=== PATIENT | male | born 1955 | race Caucasian/White ===

== ENCOUNTER 2016-08-11 21:14 | Inpatient (IN) | payer OTHER ==
[~2016-08-11] VITALS: Ht 182.9 cm; Wt 102.9 kg
[~2016-08-11 21:14] MED LIST: ACYCLOVIR400 MG PO; ATARAX10 MG PO; BACTRIM,SEPT1 TABLET PO; BYSTOLIC10 MG PO; DECADRON4 MG PO; DIALYVITE 3,001 EACH PO; GLIPIZIDE-METF1 EAC2 PO; GUAIFENESI100 MG/5 M PO; HUMALOG100 UNIT/2 SC; LABETALOL HCL100 MG PO; LABETALOL HCL200 MG PO; LEVAQUIN500 MG PO; LEVEMIR FL100 UNIT/1 SC; LEVEMIR100 UNIT/2 SC; LEVOFLOXACIN500 MG PO; LINZESS145 MCG PO; LOSARTAN POTAS100 MG PO; LOSARTAN-HCTZ1 EACH PO; METFORMIN HCL500 MG PO; MIRALAX17 GM PO; NIFEDIPINE ER60 MG PO; ONGLYZA5 MG PO; PANTOPRAZOLE SO40 MG PO; PROAIR HFA8.5 GM IH; PROMETHAZINE HC25 M1 PO; PROTONIX40 MG PO; RENVELA800 MG PO; REVLIMID5 MG PO; STEROIDS PO; TOPROL XL100 MG PO; ULORIC40 MG PO; ULTRAM50 MG PO; VELCADE1 MG/ML IV; VITAMIN D2000 UNIT PO; Zeasorb Antifungal Treatment,Mitrazol Powder TP
[2016-08-11 22:24] LABS: CHLORIDE 92 mEq/L (99-109); SODIUM 130 mEq/L (136-147)
[2016-08-11 22:26] LABS: GLUCOSE 105 mg/dL (70-99)
[2016-08-11 22:28] LABS: ANION GAP 6 MEQ/L (2-14); TOTAL BILIRUBIN 1.3 mg/dL (0.0-1.0)
[2016-08-11 22:30] LABS: ALKALINE PHOSPHATASE 65 IU/L (3-129); GFR ESTIMATE (CALCULATED) 6 mL/min/
[2016-08-11 22:31] LABS: BASOPHIL COUNT 0.2 K/uL (0-0.1); EOSINOPHIL (%) 1.3 % (0-5); EOSINOPHIL COUNT 0.1 K/uL (0-0.3); IMMATURE GRANULOCYTE (%) 3.6 % (0.0-0.7); IMMATURE GRANULOCYTE COUNT 2.3 K/uL; LYMPHOCYTE COUNT 1.4 K/uL (1.0-2.8); MCHC 30.8 G/DL (30.0-36.0); MCV 100.8 FL (86-99); MONOCYTE (%) 14.7 % (3-12); MONOCYTE COUNT 0.9 K/uL (0-0.8); NEUTROPHIL (%) 55.1 % (45-76); NEUTROPHIL COUNT 3.5 K/uL (1.8-6.4); RBC DIS.WIDTH-CV 15.9 % (11.8-14.6); RBC DIS.WIDTH-SD 54.5 % (39-53); RED BLOOD COUNT 2.58 M/uL (4.00-5.50); UREA NITROGEN (BUN) 34 mg/dL (9-23)
[2016-08-11 22:50] LABS: PLATELET COUNT 190 K/uL (156-360); WHITE BLOOD COUNT 6.4 K/uL (4.1-10.2)
[2016-08-11 22:59] LABS: HEMATOLOGY COMMENT 1 SMEAR COMPATIBLE; PLAT.SUFFICIENCY ADEQUATE
[2016-08-11] MEDS ORDERED: VITAMIN D22000 UNIT PO (23:00)
[2016-08-11] MEDS ORDERED: REVLIMID5 MG PO (23:00)
[2016-08-11 23:36] LABS: MAGNESIUM 1.8 mg/dL (1.3-2.7)
[2016-08-11 23:47] LABS: TROP-I INTERPRETATION INDETERMINATE; TROPONIN-I 0.36 ng/mL (0.0-0.30)
[2016-08-11 23:51] LABS: INFLUENZA A VIRAL ANTIGEN NEGATIVE; INFLUENZA B VIRAL ANTIGEN NEGATIVE
[2016-08-12 01:16] LABS: TROP-I INTERPRETATION INDETERMINATE; TROPONIN-I 0.43 ng/mL (0.0-0.30)
[2016-08-12 03:30] VITALS: BP 155/73
[2016-08-12 03:40] VITALS: BP 155/73
[2016-08-12 04:00] VITALS: BP 138/69
[2016-08-12 07:21] VITALS: BP 159/77
[2016-08-12 09:57] LABS: POINT-OF-CARE METER ID UU13113681
[2016-08-12 10:28] LABS: HEMATOCRIT 23.1 % (38.0-50.0); MCH 31.8 PG (29.0-34.0); MCV 99.1 FL (86-99); MEAN PLAT.VOLUME 9.8 uM^3 (9.0-12.4); NRBC (%) 0.7 /100 WBC (0-0); PLATELET COUNT 164 K/uL (156-360); RBC DIS.WIDTH-CV 16.4 % (11.8-14.6); RBC DIS.WIDTH-SD 58.5 % (39-53); RED BLOOD COUNT 2.33 M/uL (4.00-5.50)
[2016-08-12 10:55] LABS: GFR ESTIMATE (CALCULATED) 7 mL/min/; GLUCOSE 90 mg/dL (70-99); SAMPLE HEMOLYSIS CHECK 0; SAMPLE ICTERIC CHECK 0; SAMPLE LIPEMIA CHECK 0; UREA NITROGEN (BUN) 37 mg/dL (9-23)
[2016-08-12 11:06] LABS: BASOPHIL COUNT 0.2 K/uL (0-0.1); EOSINOPHIL (%) 1.3 % (0-5); EOSINOPHIL COUNT 0.1 K/uL (0-0.3); HEMATOLOGY COMMENT 1 SMEAR COMPATIBLE; IMMATURE GRANULOCYTE (%) 4.4 % (0.0-0.7); IMMATURE GRANULOCYTE COUNT 0.3 K/uL; LYMPHOCYTE COUNT 1.5 K/uL (1.0-2.8); MONOCYTE (%) 12.6 % (3-12); MONOCYTE COUNT 0.8 K/uL (0-0.8); NEUTROPHIL (%) 53.5 % (45-76); NEUTROPHIL COUNT 3.2 K/uL (1.8-6.4); PLAT.SUFFICIENCY ADEQUATE; USER ID TLW
[2016-08-12 11:12] LABS: ANION GAP 2 MEQ/L (2-14); CHLORIDE 93 MEQ/L (99-109); SODIUM 127 MEQ/L (136-147)
[2016-08-12 14:16] LABS: IRON 80 MCG/DL (35-150)
[2016-08-12 22:55] VITALS: BP 134/65
[2016-08-13 07:42] LABS: HEMATOCRIT 26.3 % (38.0-50.0); MCH 32.3 PG (29.0-34.0); MCHC 33.1 G/DL (30.0-36.0); MCV 97.8 FL (86-99); MEAN PLAT.VOLUME 10.1 uM^3 (9.0-12.4); NRBC (%) 0.8 /100 WBC (0-0); PLATELET COUNT 153 K/uL (156-360); RBC DIS.WIDTH-CV 16.8 % (11.8-14.6); RBC DIS.WIDTH-SD 59.6 % (39-53); RED BLOOD COUNT 2.69 M/uL (4.00-5.50)
[2016-08-13 08:05] LABS: INTACT PARATHYROID HORMONE 9 pg/mL (10-69)
[2016-08-13 08:42] VITALS: BP 125/60
[2016-08-13 08:43] LABS: ABS NEUTROPHIL COUNT 3.67; ANISOCYTOSIS 1+; EOSINOPHIL ABS CT 0.12; MACROCYTES OCC; PLAT.SUFFICIENCY ADEQUATE; POLYCHROMASIA OCC
[2016-08-13 08:59] LABS: DELETE MACHINE DIFF? YES
[2016-08-13 16:08] VITALS: BP 145/70
[2016-08-13 23:00] VITALS: BP 166/79
[2016-08-14 06:03] LABS: HEMATOCRIT 27.3 % (38.0-50.0); MCH 31.4 PG (29.0-34.0); MCHC 31.9 G/DL (30.0-36.0); MCV 98.6 FL (86-99); MEAN PLAT.VOLUME 9.8 uM^3 (9.0-12.4); PLATELET COUNT 145 K/uL (156-360); RBC DIS.WIDTH-CV 16.3 % (11.8-14.6); RBC DIS.WIDTH-SD 58.2 % (39-53); RED BLOOD COUNT 2.77 M/uL (4.00-5.50); WHITE BLOOD COUNT 6.1 K/uL (4.1-10.2)
[2016-08-14 06:43] LABS: VANCOMYCIN, TROUGH 14.3 MCG/ML (10-20)
[2016-08-14 06:51] LABS: DELETE MACHINE DIFF? YES
[2016-08-14 07:25] LABS: ABS NEUTROPHIL COUNT 3.54; ANISOCYTOSIS 1+; EOSINOPHIL ABS CT 0.43; PLAT.SUFFICIENCY DECREASED; USER ID STC
[2016-08-14 08:02] VITALS: BP 163/88
[2016-08-14 08:54] LABS: ANION GAP 5 MEQ/L (2-14); CHLORIDE 92 MEQ/L (99-109); GFR ESTIMATE (CALCULATED) 8 mL/min/; GLUCOSE 85 mg/dL (70-99); POTASSIUM 3.6 MEQ/L (3.7-5.4); SODIUM 128 MEQ/L (136-147); UREA NITROGEN (BUN) 30 mg/dL (9-23)
[2016-08-14 15:35] VITALS: BP 130/67
[2016-08-14 23:31] VITALS: BP 149/70
[2016-08-15 06:38] LABS: HEMATOCRIT 29.5 % (38.0-50.0); MCH 30.6 PG (29.0-34.0); MCHC 30.8 G/DL (30.0-36.0); MCV 99.3 FL (86-99); MEAN PLAT.VOLUME 9.8 uM^3 (9.0-12.4); NRBC (%) 1.3 /100 WBC (0-0); PLATELET COUNT 156 K/uL (156-360); RBC DIS.WIDTH-SD 57.7 % (39-53); RED BLOOD COUNT 2.97 M/uL (4.00-5.50); WHITE BLOOD COUNT 7.7 K/uL (4.1-10.2)
[2016-08-15 07:41] LABS: ABS NEUTROPHIL COUNT 4.37; ANISOCYTOSIS 1+; EOSINOPHIL ABS CT 0.31; PLAT.SUFFICIENCY ADEQUATE; ROULEAUX 1+; USER ID MCB
[2016-08-15 08:08] VITALS: BP 150/79
[2016-08-15 14:15] LABS: DELETE MACHINE DIFF? YES
[2016-08-15 15:41] VITALS: BP 145/69
[2016-08-15 16:20] LABS: C DIFF TOXIN NEGATIVE (NEGATIVE)
[2016-08-15 16:28] LABS: PROBE CHECK PASS; SPECIMEN PROCESSING CONTROL PASS
[2016-08-15 22:24] VITALS: BP 157/80
[2016-08-16 08:55] LABS: MCH 30.5 PG (29.0-34.0); MCHC 31.1 G/DL (30.0-36.0); MCV 98.2 FL (86-99); NRBC (%) 0.6 /100 WBC (0-0); PLATELET COUNT 152 K/uL (156-360); RBC DIS.WIDTH-CV 15.7 % (11.8-14.6); RBC DIS.WIDTH-SD 56.2 % (39-53); RED BLOOD COUNT 2.75 M/uL (4.00-5.50); WHITE BLOOD COUNT 8.5 K/uL (4.1-10.2)
[2016-08-16 09:04] LABS: DELETE MACHINE DIFF? YES
[2016-08-16 09:25] LABS: ANION GAP 2 MEQ/L (2-14); CHLORIDE 91 MEQ/L (99-109); GFR ESTIMATE (CALCULATED) 9 mL/min/; GLUCOSE 101 mg/dL (70-99); POTASSIUM 3.3 MEQ/L (3.7-5.4); SAMPLE HEMOLYSIS CHECK 0; SAMPLE ICTERIC CHECK 0; SAMPLE LIPEMIA CHECK 0; SODIUM 126 MEQ/L (136-147); UREA NITROGEN (BUN) 27 mg/dL (9-23)
[2016-08-16 16:00] VITALS: BP 103/55
[2016-08-16 23:37] VITALS: BP 124/69
[2016-08-17 07:29] LABS: ANION GAP 2 MEQ/L (2-14); CHLORIDE 92 MEQ/L (99-109); GFR ESTIMATE (CALCULATED) 15 mL/min/; GLUCOSE 78 mg/dL (70-99); POTASSIUM 3.5 MEQ/L (3.7-5.4); SAMPLE HEMOLYSIS CHECK 0; SAMPLE ICTERIC CHECK 0; SAMPLE LIPEMIA CHECK 0; SODIUM 126 MEQ/L (136-147); UREA NITROGEN (BUN) 19 mg/dL (9-23)
[2016-08-17 07:40] VITALS: BP 124/67
[2016-08-17 16:33] VITALS: BP 133/71
[2016-08-17 19:20] LABS: POINT-OF-CARE METER ID UU13113717
[2016-08-17 21:26] LABS: POINT-OF-CARE METER ID UU13113725
[2016-08-17 23:13] VITALS: BP 109/71
[2016-08-18] VITALS (7 sets, daily range): BP systolic 129–173; BP diastolic 60–84
[2016-08-18 05:32] LABS: POINT-OF-CARE METER ID UU13113725
[2016-08-18 11:17] LABS: POINT-OF-CARE METER ID UU13113725
[2016-08-18 16:12] LABS: POINT-OF-CARE METER ID UU13113725
[2016-08-18 18:28] LABS: ANION GAP 5 MEQ/L (2-14); CHLORIDE 90 MEQ/L (99-109); SAMPLE HEMOLYSIS CHECK 0; SAMPLE ICTERIC CHECK 0; SAMPLE LIPEMIA CHECK 0; SODIUM 127 MEQ/L (136-147)
[2016-08-18 18:34] LABS: GFR ESTIMATE (CALCULATED) 8 mL/min/; GLUCOSE 119 mg/dL (70-99); UREA NITROGEN (BUN) 34 mg/dL (9-23)
[2016-08-18 20:53] LABS: POINT-OF-CARE METER ID UU13113717
[2016-08-19 03:31] VITALS: BP 156/74
[2016-08-19 06:45] LABS: MCH 31.8 PG (29.0-34.0); MCHC 32.1 G/DL (30.0-36.0); MCV 98.9 FL (86-99); MEAN PLAT.VOLUME 9.5 uM^3 (9.0-12.4); NRBC (%) 0.7 /100 WBC (0-0); PLATELET COUNT 136 K/uL (156-360); RBC DIS.WIDTH-CV 15.8 % (11.8-14.6); RBC DIS.WIDTH-SD 56.4 % (39-53); RED BLOOD COUNT 2.83 M/uL (4.00-5.50); WHITE BLOOD COUNT 10.1 K/uL (4.1-10.2)
[2016-08-19 06:56] LABS: DELETE MACHINE DIFF? YES
[2016-08-19 07:12] LABS: SAMPLE HEMOLYSIS CHECK 0; SAMPLE ICTERIC CHECK 0; SAMPLE LIPEMIA CHECK 0
[2016-08-19 07:13] LABS: VANCOMYCIN, TROUGH 16.5 MCG/ML (10-20)
[2016-08-19 07:54] LABS: ABS NEUTROPHIL COUNT 5.76; ANISOCYTOSIS OCC; MICROCYTOSIS 1+; PLAT.SUFFICIENCY DECREASED; POLYCHROMASIA OCC; SPHEROCYTES OCC; USER ID SDF
[2016-08-19 08:19] LABS: POINT-OF-CARE METER ID UU13113681; POINT-OF-CARE USER ID DROKMM72
[2016-08-19 08:21] LABS: ANION GAP 7 MEQ/L (2-14); CHLORIDE 89 MEQ/L (99-109); GFR ESTIMATE (CALCULATED) 7 mL/min/; GLUCOSE 107 mg/dL (70-99); LIPASE 42 U/L (1.0-51.0); SODIUM 126 MEQ/L (136-147); UREA NITROGEN (BUN) 39 mg/dL (9-23)
[2016-08-19 09:08] LABS: DELETE MACHINE DIFF? YES; HEMATOCRIT 28.4 % (38.0-50.0); MCH 31.3 PG (29.0-34.0); MCV 97.6 FL (86-99); MEAN PLAT.VOLUME 10.4 uM^3 (9.0-12.4); NRBC (%) 0.7 /100 WBC (0-0); PLATELET COUNT 144 K/uL (156-360); RBC DIS.WIDTH-CV 15.7 % (11.8-14.6); RBC DIS.WIDTH-SD 55.1 % (39-53); RED BLOOD COUNT 2.91 M/uL (4.00-5.50); WHITE BLOOD COUNT 11.2 K/uL (4.1-10.2)
[2016-08-19 09:43] LABS: ABS NEUTROPHIL COUNT 6.27; ANISOCYTOSIS OCC; EOSINOPHIL ABS CT 0.11; MICROCYTOSIS 1+; PLAT.SUFFICIENCY DECREASED; POLYCHROMASIA OCC; SPHEROCYTES OCC; USER ID SDF
[2016-08-19 14:13] VITALS: BP 121/67
[2016-08-19 16:05] LABS: POINT-OF-CARE METER ID UU13113717
[2016-08-19 21:14] LABS: POINT-OF-CARE METER ID UU13113717
[2016-08-19 23:15] VITALS: BP 134/66
[2016-08-20 05:56] LABS: POINT-OF-CARE METER ID UU13113717
[2016-08-20 07:03] LABS: HEMATOCRIT 27.3 % (38.0-50.0); MCH 31.4 PG (29.0-34.0); MCHC 31.5 G/DL (30.0-36.0); MCV 99.6 FL (86-99); NRBC (%) 1.1 /100 WBC (0-0); PLATELET COUNT 132 K/uL (156-360); RBC DIS.WIDTH-CV 15.9 % (11.8-14.6); RBC DIS.WIDTH-SD 57.3 % (39-53); RED BLOOD COUNT 2.74 M/uL (4.00-5.50); WHITE BLOOD COUNT 9.8 K/uL (4.1-10.2)
[2016-08-20 07:24] LABS: DELETE MACHINE DIFF? YES
[2016-08-20 07:38] VITALS: BP 146/74
[2016-08-20 07:39] LABS: ALKALINE PHOSPHATASE 55 IU/L (3-129); ANION GAP 2 MEQ/L (2-14); CHLORIDE 90 MEQ/L (99-109); GLUCOSE 96 mg/dL (70-99); POTASSIUM 3.3 MEQ/L (3.7-5.4); SAMPLE HEMOLYSIS CHECK 0; SAMPLE ICTERIC CHECK 0; SAMPLE LIPEMIA CHECK 0; SODIUM 126 MEQ/L (136-147); TOTAL BILIRUBIN 1.5 MG/DL (0.0-1.0); UREA NITROGEN (BUN) 23 mg/dL (9-23)
[2016-08-20 07:47] LABS: GFR ESTIMATE (CALCULATED) 12 mL/min/
[2016-08-20 07:56] LABS: ABS NEUTROPHIL COUNT 5.98; ANISOCYTOSIS 1+; MACROCYTES 1+; PLAT.SUFFICIENCY DECREASED; USER ID STC
[2016-08-20 11:35] LABS: POINT-OF-CARE METER ID UU13113725
[2016-08-20 15:51] VITALS: BP 153/74
[2016-08-20 16:29] LABS: POINT-OF-CARE METER ID UU13113717
[2016-08-20 21:15] LABS: POINT-OF-CARE METER ID UU13113717
[2016-08-20 23:49] VITALS: BP 145/75
[2016-08-21 04:10] LABS: POINT-OF-CARE METER ID UU13113717
[2016-08-21 06:33] LABS: POINT-OF-CARE METER ID UU13113717
[2016-08-21 07:05] VITALS: BP 139/65
[2016-08-21 07:45] LABS: HEMATOCRIT 26.3 % (38.0-50.0); MCH 31.6 PG (29.0-34.0); MCHC 32.3 G/DL (30.0-36.0); MCV 97.8 FL (86-99); MEAN PLAT.VOLUME 10.2 uM^3 (9.0-12.4); NRBC (%) 0.6 /100 WBC (0-0); PLATELET COUNT 120 K/uL (156-360); RBC DIS.WIDTH-CV 15.6 % (11.8-14.6); RBC DIS.WIDTH-SD 54.8 % (39-53); RED BLOOD COUNT 2.69 M/uL (4.00-5.50); WHITE BLOOD COUNT 9.5 K/uL (4.1-10.2)
[2016-08-21 08:09] LABS: ANION GAP 2 MEQ/L (2-14); CHLORIDE 89 MEQ/L (99-109); GLUCOSE 141 mg/dL (70-99); POTASSIUM 3.4 MEQ/L (3.7-5.4); SAMPLE HEMOLYSIS CHECK 0; SAMPLE ICTERIC CHECK 0; SAMPLE LIPEMIA CHECK 0; SODIUM 124 MEQ/L (136-147); UREA NITROGEN (BUN) 33 mg/dL (9-23)
[2016-08-21 08:10] LABS: GFR ESTIMATE (CALCULATED) 9 mL/min/; VANCOMYCIN, TROUGH 34.8 MCG/ML (10-20)
[2016-08-21 08:32] LABS: ABS NEUTROPHIL COUNT 6.07; ANISOCYTOSIS OCC; EOSINOPHIL ABS CT 0.09; PLAT.SUFFICIENCY DECREASED; USER ID SDF
[2016-08-21 13:27] LABS: DELETE MACHINE DIFF? YES
[2016-08-21 14:52] VITALS: BP 132/68
[2016-08-21 21:04] LABS: POINT-OF-CARE METER ID UU13113717
[2016-08-21 23:00] VITALS: BP 138/70
[2016-08-22 08:01] VITALS: BP 137/68
[2016-08-22 12:05] VITALS: BP 122/68
[2016-08-22 16:00] VITALS: BP 141/82
[2016-08-22 19:51] VITALS: BP 174/88
[2016-08-22 21:26] LABS: POINT-OF-CARE METER ID UU13113725
[2016-08-22 23:38] VITALS: BP 190/91
[2016-08-23 06:03] LABS: POINT-OF-CARE METER ID UU13113725
[2016-08-23 08:03] VITALS: BP 154/89
[2016-08-23 09:07] LABS: ANION GAP 4 MEQ/L (2-14); CHLORIDE 89 MEQ/L (99-109); POTASSIUM 3.9 MEQ/L (3.7-5.4); SAMPLE HEMOLYSIS CHECK 0; SAMPLE ICTERIC CHECK 0; SAMPLE LIPEMIA CHECK 0; SODIUM 125 MEQ/L (136-147)
[2016-08-23 09:12] LABS: GFR ESTIMATE (CALCULATED) 9 mL/min/; GLUCOSE 210 mg/dL (70-99); UREA NITROGEN (BUN) 44 mg/dL (9-23)
[2016-08-23 09:26] LABS: MCHC 30.4 G/DL (30.0-36.0); MCV 98.9 FL (86-99); MEAN PLAT.VOLUME 10.7 uM^3 (9.0-12.4); NRBC (%) 0.5 /100 WBC (0-0); PLATELET COUNT 101 K/uL (156-360); RBC DIS.WIDTH-CV 15.8 % (11.8-14.6); RBC DIS.WIDTH-SD 55.6 % (39-53); RED BLOOD COUNT 2.73 M/uL (4.00-5.50)
[2016-08-23 09:27] LABS: WHITE BLOOD COUNT 12.9 K/uL (4.1-10.2)
[2016-08-23 10:18] LABS: ABS NEUTROPHIL COUNT 9.79; BASOPHIL COUNT 0.1 K/uL (0-0.1); EOSINOPHIL (%) 0.3 % (0-5); HYPOCHROMASIA 2+; IMMATURE GRANULOCYTE (%) 8.1 % (0.0-0.7); LYMPHOCYTE COUNT 1.7 K/uL (1.0-2.8); MONOCYTE (%) 6.7 % (3-12); MONOCYTE COUNT 0.9 K/uL (0-0.8); NEUTROPHIL (%) 70.7 % (45-76); NEUTROPHIL COUNT 9.1 K/uL (1.8-6.4); PLAT.SUFFICIENCY DECREASED; ROULEAUX 1+; USER ID CCL
[2016-08-23 13:59] LABS: POINT-OF-CARE METER ID UU13113717
[2016-08-23 16:20] LABS: POINT-OF-CARE METER ID UU13113725
[2016-08-23 16:30] VITALS: BP 145/81
[2016-08-23 21:22] LABS: POINT-OF-CARE METER ID UU13113725
[2016-08-23 22:52] VITALS: BP 150/90
[2016-08-24 08:09] VITALS: BP 159/92
[2016-08-24 11:00] VITALS: BP 153/99
[2016-08-24 16:31] VITALS: BP 147/75
[2016-08-24 21:37] LABS: POINT-OF-CARE METER ID UU13113717
[2016-08-24 23:00] VITALS: BP 153/99; BP 161/87
[2016-08-25 00:54] VITALS: BP 161/87
[2016-08-25 07:39] LABS: ANION GAP 8 MEQ/L (2-14); CHLORIDE 88 MEQ/L (99-109); GFR ESTIMATE (CALCULATED) 8 mL/min/; GLUCOSE 269 mg/dL (70-99); POTASSIUM 3.9 MEQ/L (3.7-5.4); SAMPLE HEMOLYSIS CHECK 0; SAMPLE ICTERIC CHECK 0; SAMPLE LIPEMIA CHECK 0; SODIUM 124 MEQ/L (136-147)
[2016-08-25 07:42] LABS: UREA NITROGEN (BUN) 91 mg/dL (9-23)
[2016-08-25 09:00] VITALS: BP 149/87
[2016-08-25 11:39] LABS: POINT-OF-CARE METER ID UU13113725
[2016-08-25 16:29] VITALS: BP 132/71
[2016-08-25 23:10] VITALS: BP 136/68
[2016-08-26 01:30] VITALS: BP 124/63
[2016-08-26 02:29] LABS: MCH 31.3 PG (29.0-34.0); MCHC 32.6 G/DL (30.0-36.0); MCV 96.1 FL (86-99); MEAN PLAT.VOLUME 11.4 uM^3 (9.0-12.4); PLATELET COUNT 74 K/uL (156-360); RBC DIS.WIDTH-CV 15.5 % (11.8-14.6); RBC DIS.WIDTH-SD 51.1 % (39-53); RED BLOOD COUNT 2.81 M/uL (4.00-5.50); WHITE BLOOD COUNT 9.8 K/uL (4.1-10.2)
[2016-08-26 02:40] LABS: CHLORIDE 92 mEq/L (99-109); POTASSIUM 4.2 mEq/L (3.7-5.4); SODIUM 127 mEq/L (136-147)
[2016-08-26 02:42] LABS: GLUCOSE 268 mg/dL (70-99)
[2016-08-26 02:44] LABS: ANION GAP 12 MEQ/L (2-14); TOTAL BILIRUBIN 2.2 mg/dL (0.0-1.0)
[2016-08-26 02:46] LABS: ALKALINE PHOSPHATASE 82 IU/L (3-129); GFR ESTIMATE (CALCULATED) 6 mL/min/
[2016-08-26 02:58] LABS: UREA NITROGEN (BUN) 124 mg/dL (9-23)
[2016-08-26 23:37] VITALS: BP 112/64
[2016-08-27 07:32] VITALS: BP 108/66
[2016-08-27 11:52] LABS: POINT-OF-CARE METER ID UU13113725
[2016-08-27 16:00] LABS: POINT-OF-CARE METER ID UU13113717
[2016-08-27 16:07] VITALS: BP 126/59
[2016-08-27 20:20] VITALS: BP 135/61
[2016-08-27 21:56] LABS: POINT-OF-CARE METER ID UU13113725
[2016-08-27 23:59] VITALS: BP 129/61
[2016-08-28 05:50] LABS: POINT-OF-CARE METER ID UU13113725
[2016-08-28 08:39] LABS: EOSINOPHIL (%) 1.6 % (0-5); EOSINOPHIL COUNT 0.1 K/uL (0-0.3); HEMATOCRIT 24.5 % (38.0-50.0); IMMATURE GRANULOCYTE (%) 4.3 % (0.0-0.7); IMMATURE GRANULOCYTE COUNT 0.4 K/uL; LYMPHOCYTE COUNT 2.2 K/uL (1.0-2.8); MCH 31.6 PG (29.0-34.0); MCHC 33.1 G/DL (30.0-36.0); MCV 95.7 FL (86-99); MEAN PLAT.VOLUME 11.6 uM^3 (9.0-12.4); MONOCYTE (%) 10.9 % (3-12); MONOCYTE COUNT 0.9 K/uL (0-0.8); NEUTROPHIL COUNT 4.6 K/uL (1.8-6.4); RBC DIS.WIDTH-CV 16.2 % (11.8-14.6); RBC DIS.WIDTH-SD 55.9 % (39-53); RED BLOOD COUNT 2.56 M/uL (4.00-5.50); WHITE BLOOD COUNT 8.2 K/uL (4.1-10.2)
[2016-08-28 08:41] LABS: PLATELET COUNT 114 K/uL (156-360)
[2016-08-28 08:48] LABS: ANION GAP 8 MEQ/L (2-14); CHLORIDE 89 MEQ/L (99-109); POTASSIUM 3.6 MEQ/L (3.7-5.4); SAMPLE HEMOLYSIS CHECK 0; SAMPLE ICTERIC CHECK 0; SAMPLE LIPEMIA CHECK 0; SODIUM 127 MEQ/L (136-147)
[2016-08-28 09:01] LABS: GLUCOSE 166 mg/dL (70-99); UREA NITROGEN (BUN) 89 mg/dL (9-23)
[2016-08-28 09:04] LABS: GFR ESTIMATE (CALCULATED) 8 mL/min/
[2016-08-28 09:38] LABS: HEMATOLOGY COMMENT 1 SMEAR COMPATIBLE; PLAT.SUFFICIENCY DECREASED; USER ID STC
[2016-08-28 14:15] LABS: HBSG INDEX 0.27
[2016-08-28 15:29] LABS: POINT-OF-CARE METER ID UU13113725
[2016-08-28 15:53] VITALS: BP 110/57
[2016-08-28 20:11] VITALS: BP 132/64
[2016-08-28 21:04] LABS: POINT-OF-CARE METER ID UU13113725
[2016-08-29 04:04] VITALS: BP 110/56
[2016-08-29 05:53] LABS: POINT-OF-CARE METER ID UU13113725
[2016-08-29 07:48] VITALS: BP 130/70
[2016-08-29 11:34] LABS: POINT-OF-CARE METER ID UU13113725
[2016-08-29 15:59] VITALS: BP 113/58
[2016-08-29 21:25] LABS: POINT-OF-CARE METER ID UU13113725
[2016-08-29 22:52] VITALS: BP 150/60
[2016-08-30 06:21] LABS: POINT-OF-CARE METER ID UU13113717
[2016-08-30 08:22] VITALS: BP 125/65
[2016-08-30 11:55] LABS: POINT-OF-CARE METER ID UU13113717
[2016-08-30 14:12] LABS: MCH 30.3 PG (29.0-34.0); MCHC 31.3 G/DL (30.0-36.0); MCV 96.6 FL (86-99); MEAN PLAT.VOLUME 11.2 uM^3 (9.0-12.4); PLATELET COUNT 135 K/uL (156-360); RBC DIS.WIDTH-CV 16.7 % (11.8-14.6); RBC DIS.WIDTH-SD 57.3 % (39-53); RED BLOOD COUNT 2.38 M/uL (4.00-5.50); WHITE BLOOD COUNT 8.1 K/uL (4.1-10.2)
[2016-08-30 15:24] LABS: SODIUM 132 MEQ/L (136-147)
[2016-08-30 15:31] LABS: ANION GAP 8 MEQ/L (2-14); CHLORIDE 94 MEQ/L (99-109); GFR ESTIMATE (CALCULATED) 8 mL/min/; GLUCOSE 161 mg/dL (70-99); POTASSIUM 3.7 MEQ/L (3.7-5.4); SAMPLE HEMOLYSIS CHECK 0; SAMPLE ICTERIC CHECK 0; SAMPLE LIPEMIA CHECK 0; UREA NITROGEN (BUN) 62 mg/dL (9-23)
[2016-08-30 15:43] LABS: ABS NEUTROPHIL COUNT 6.33; ANISOCYTOSIS 1+; EOSINOPHIL ABS CT 0.24; HYPOCHROMASIA 1+; MACROCYTES OCC; PLAT.SUFFICIENCY DECREASED; SPHEROCYTES 1+; USER ID SS
[2016-08-30 19:11] LABS: POINT-OF-CARE METER ID UU13113717
[2016-08-30 19:45] VITALS: BP 113/59
[2016-08-30 20:58] LABS: POINT-OF-CARE METER ID UU13113717
[2016-08-30 23:21] LABS: DELETE MACHINE DIFF? YES
[2016-08-31 04:19] VITALS: BP 122/67
[2016-08-31 05:52] LABS: POINT-OF-CARE METER ID UU13113717
[2016-08-31 07:55] VITALS: BP 127/66
[2016-08-31 14:58] VITALS: BP 149/70
[2016-08-31 21:01] LABS: POINT-OF-CARE METER ID UU13113717
[2016-08-31 22:23] VITALS: BP 118/59
[2016-09-01 03:00] VITALS: BP 114/64
[2016-09-01 08:30] VITALS: BP 121/75
[2016-09-01 10:59] LABS: NRBC (%) 0.3 /100 WBC (0-0)
[2016-09-01 11:04] LABS: HEMATOCRIT 26.6 % (38.0-50.0); MCH 31.8 PG (29.0-34.0); MCHC 32.7 G/DL (30.0-36.0); MCV 97.1 FL (86-99); MEAN PLAT.VOLUME 12.2 uM^3 (9.0-12.4); PLATELET COUNT 126 K/uL (156-360); RBC DIS.WIDTH-CV 17.9 % (11.8-14.6); RED BLOOD COUNT 2.74 M/uL (4.00-5.50)
[2016-09-01 11:05] LABS: WHITE BLOOD COUNT 13.1 K/uL (4.1-10.2)
[2016-09-01 11:14] VITALS: BP 168/45
[2016-09-01 11:36] LABS: ANISOCYTOSIS 1+; EOSINOPHIL (%) 0.1 % (0-5); IMMATURE GRANULOCYTE (%) 7.3 % (0.0-0.7); LYMPHOCYTE COUNT 0.8 K/uL (1.0-2.8); MACROCYTES OCC; MONOCYTE (%) 3.3 % (3-12); MONOCYTE COUNT 0.4 K/uL (0-0.8); NEUTROPHIL (%) 83.1 % (45-76); NEUTROPHIL COUNT 10.9 K/uL (1.8-6.4); PLAT.SUFFICIENCY DECREASED; POLYCHROMASIA OCC; SMUDGE CELLS 0; SPHEROCYTES OCC; USER ID SDF
[2016-09-01 16:34] VITALS: BP 134/81
[2016-09-01 20:33] VITALS: BP 138/81
[2016-09-01 22:49] VITALS: BP 119/77
[2016-09-02 02:35] VITALS: BP 132/77
[2016-09-02 08:45] LABS: NRBC (%) 0.4 /100 WBC (0-0)
[2016-09-02 08:54] LABS: HEMATOCRIT 26.5 % (38.0-50.0); MCH 31.9 PG (29.0-34.0); MCHC 33.6 G/DL (30.0-36.0); MEAN PLAT.VOLUME 12.6 uM^3 (9.0-12.4); PLATELET COUNT 99 K/uL (156-360); RBC DIS.WIDTH-CV 17.6 % (11.8-14.6); RBC DIS.WIDTH-SD 60.5 % (39-53); RED BLOOD COUNT 2.79 M/uL (4.00-5.50)
[2016-09-02 09:00] LABS: WHITE BLOOD COUNT 8.8 K/uL (4.1-10.2)
[2016-09-02 09:19] LABS: ABS NEUTROPHIL COUNT 7.33; ANISOCYTOSIS 1+; EOSINOPHIL (%) 0.1 % (0-5); IMMATURE GRANULOCYTE (%) 6.7 % (0.0-0.7); IMMATURE GRANULOCYTE COUNT 0.6 K/uL; LYMPHOCYTE COUNT 0.5 K/uL (1.0-2.8); MICROCYTOSIS OCC; MONOCYTE (%) 8.9 % (3-12); MONOCYTE COUNT 0.8 K/uL (0-0.8); NEUTROPHIL (%) 78.1 % (45-76); NEUTROPHIL COUNT 6.9 K/uL (1.8-6.4); PLAT.SUFFICIENCY DECREASED; SPHEROCYTES OCC; USER ID SDF
[2016-09-02 10:10] LABS: POINT-OF-CARE METER ID UU13113681; POINT-OF-CARE USER ID DROKMM72
[2016-09-02 13:58] LABS: ANION GAP 8 MEQ/L (2-14); CHLORIDE 97 MEQ/L (99-109); GLUCOSE 121 mg/dL (70-99); SAMPLE HEMOLYSIS CHECK 0; SAMPLE ICTERIC CHECK 0; SAMPLE LIPEMIA CHECK 0; SODIUM 129 MEQ/L (136-147); UREA NITROGEN (BUN) 56 mg/dL (9-23)
[2016-09-02 14:03] LABS: GFR ESTIMATE (CALCULATED) 24 mL/min/
[2016-09-02 14:54] LABS: POINT-OF-CARE USER ID 611181321
[2016-09-02 14:59] LABS: POINT-OF-CARE METER ID UU13113725
[2016-09-02 14:59] LABS: POINT-OF-CARE METER ID UU13113725
[2016-09-02 15:00] LABS: POINT-OF-CARE METER ID UU13113725
[2016-09-02 15:20] LABS: POINT-OF-CARE METER ID UU13113717
[2016-09-02 16:50] VITALS: BP 113/67
[2016-09-02 22:46] VITALS: BP 81/53
[2016-09-03 00:50] VITALS: BP 100/55
[2016-09-03 07:38] LABS: NRBC (%) 1.7 /100 WBC (0-0)
[2016-09-03 07:40] LABS: HEMATOCRIT 25.2 % (38.0-50.0); MCH 30.6 PG (29.0-34.0); MCHC 32.5 G/DL (30.0-36.0); RBC DIS.WIDTH-CV 17.4 % (11.8-14.6); RBC DIS.WIDTH-SD 57.8 % (39-53); RED BLOOD COUNT 2.68 M/uL (4.00-5.50); WHITE BLOOD COUNT 6.2 K/uL (4.1-10.2)
[2016-09-03 07:58] VITALS: BP 92/57
[2016-09-03 08:15] LABS: ABS NEUTROPHIL COUNT 5.38; ANISOCYTOSIS 1+; BASOPHIL COUNT 0.1 K/uL (0-0.1); EOSINOPHIL (%) 0.5 % (0-5); HYPOCHROMASIA OCC; IMMATURE GRANULOCYTE (%) 5.7 % (0.0-0.7); IMMATURE GRANULOCYTE COUNT 0.4 K/uL; LYMPHOCYTE COUNT 0.7 K/uL (1.0-2.8); MACROCYTES 1+; MEAN PLAT.VOLUME 12.2 uM^3 (9.0-12.4); MONOCYTE (%) 9.1 % (3-12); MONOCYTE COUNT 0.6 K/uL (0-0.8); NEUTROPHIL (%) 72.2 % (45-76); NEUTROPHIL COUNT 4.5 K/uL (1.8-6.4); PLAT.SUFFICIENCY DECREASED; POLYCHROMASIA RARE; SPHEROCYTES 1+
[2016-09-03 08:21] LABS: PLATELET COUNT 51 K/uL (156-360)
[2016-09-03 08:56] LABS: ANION GAP 11 MEQ/L (2-14); CHLORIDE 96 MEQ/L (99-109); MAGNESIUM 1.9 mg/dl (1.3-2.7); SAMPLE HEMOLYSIS CHECK 0; SAMPLE ICTERIC CHECK 0; SAMPLE LIPEMIA CHECK 0; SODIUM 130 MEQ/L (136-147)
[2016-09-03 08:57] LABS: GFR ESTIMATE (CALCULATED) 12 mL/min/; GLUCOSE 202 mg/dL (70-99); POTASSIUM 4.9 MEQ/L (3.7-5.4); UREA NITROGEN (BUN) 91 mg/dL (9-23)
[2016-09-03 15:49] VITALS: BP 85/56
[2016-09-03 22:49] VITALS: BP 92/53
[2016-09-04 03:25] VITALS: BP 106/57
[2016-09-04 07:06] LABS: NRBC (%) 0.9 /100 WBC (0-0)
[2016-09-04 07:23] LABS: EOSINOPHIL (%) 1.2 % (0-5); EOSINOPHIL COUNT 0.1 K/uL (0-0.3); HEMATOCRIT 25.6 % (38.0-50.0); IMMATURE GRANULOCYTE (%) 8.7 % (0.0-0.7); IMMATURE GRANULOCYTE COUNT 0.7 K/uL; LYMPHOCYTE COUNT 0.5 K/uL (1.0-2.8); MCH 29.6 PG (29.0-34.0); MCHC 30.9 G/DL (30.0-36.0); MCV 95.9 FL (86-99); MONOCYTE (%) 10.9 % (3-12); MONOCYTE COUNT 0.8 K/uL (0-0.8); NEUTROPHIL (%) 72.2 % (45-76); NEUTROPHIL COUNT 5.4 K/uL (1.8-6.4); RBC DIS.WIDTH-CV 17.8 % (11.8-14.6); RBC DIS.WIDTH-SD 59.2 % (39-53); RED BLOOD COUNT 2.67 M/uL (4.00-5.50); WHITE BLOOD COUNT 7.5 K/uL (4.1-10.2)
[2016-09-04 07:33] LABS: ALKALINE PHOSPHATASE 87 IU/L (3-129); ANION GAP 11 MEQ/L (2-14); CHLORIDE 97 MEQ/L (99-109); GLUCOSE 136 mg/dL (70-99); SAMPLE HEMOLYSIS CHECK 0; SAMPLE ICTERIC CHECK 0; SAMPLE LIPEMIA CHECK 0; SODIUM 131 MEQ/L (136-147); TOTAL BILIRUBIN 1.9 MG/DL (0.0-1.0)
[2016-09-04 07:34] LABS: GFR ESTIMATE (CALCULATED) 8 mL/min/; UREA NITROGEN (BUN) 117 mg/dL (9-23)
[2016-09-04 07:49] LABS: INTACT PARATHYROID HORMONE 209 pg/mL (10-69)
[2016-09-04 08:20] LABS: ABS NEUTROPHIL COUNT 5.63; ANISOCYTOSIS 1+; EOSINOPHIL ABS CT 0.08; MACROCYTES OCC; MEAN PLAT.VOLUME 12.8 uM^3 (9.0-12.4); PLAT.SUFFICIENCY DECREASED; PLATELET COUNT 43 K/uL (156-360); POLYCHROMASIA OCC; SPHEROCYTES OCC; USER ID SDF
[2016-09-04 14:19] VITALS: BP 107/54
[2016-09-04 21:17] LABS: POINT-OF-CARE METER ID UU13113725
[2016-09-05 01:08] VITALS: BP 91/55
[2016-09-05 06:35] LABS: POINT-OF-CARE METER ID UU13113725
[2016-09-05 08:00] VITALS: BP 94/57
[2016-09-05 17:07] VITALS: BP 97/54
[2016-09-05 17:15] LABS: POINT-OF-CARE METER ID UU13113725
[2016-09-05 21:14] LABS: POINT-OF-CARE METER ID UU13113725
[2016-09-05 23:48] VITALS: BP 82/52
[2016-09-06 06:00] LABS: POINT-OF-CARE METER ID UU13113725
[2016-09-06 07:19] LABS: NRBC (%) 0.5 /100 WBC (0-0)
[2016-09-06 07:58] LABS: ANION GAP 10 MEQ/L (2-14); CHLORIDE 93 MEQ/L (99-109); SAMPLE HEMOLYSIS CHECK 0; SAMPLE ICTERIC CHECK 0; SAMPLE LIPEMIA CHECK 0; SODIUM 132 MEQ/L (136-147); UREA NITROGEN (BUN) 74 mg/dL (9-23)
[2016-09-06 07:59] LABS: ALKALINE PHOSPHATASE 133 IU/L (3-129); GFR ESTIMATE (CALCULATED) 11 mL/min/; GLUCOSE 95 mg/dL (70-99); POTASSIUM 3.8 MEQ/L (3.7-5.4)
[2016-09-06 08:57] LABS: ABS NEUTROPHIL COUNT 5.28; ANISOCYTOSIS 1+; EOSINOPHIL (%) 1.5 % (0-5); EOSINOPHIL ABS CT 0.07; EOSINOPHIL COUNT 0.1 K/uL (0-0.3); IMMATURE GRANULOCYTE (%) 6.2 % (0.0-0.7); IMMATURE GRANULOCYTE COUNT 0.5 K/uL; MACROCYTES 1+; MCH 31.6 PG (29.0-34.0); MCHC 32.1 G/DL (30.0-36.0); MCV 98.4 FL (86-99); MEAN PLAT.VOLUME 13.9 uM^3 (9.0-12.4); MICROCYTOSIS OCC; MONOCYTE (%) 11.6 % (3-12); MONOCYTE COUNT 0.9 K/uL (0-0.8); NEUTROPHIL (%) 66.9 % (45-76); PLAT.SUFFICIENCY DECREASED; POLYCHROMASIA 1+; RBC DIS.WIDTH-SD 62.6 % (39-53); RED BLOOD COUNT 2.44 M/uL (4.00-5.50); SPHEROCYTES OCC; WHITE BLOOD COUNT 7.4 K/uL (4.1-10.2)
[2016-09-06 09:07] LABS: PLATELET COUNT 69 K/uL (156-360)
[2016-09-06 14:13] VITALS: BP 121/60
[2016-09-06 22:06] LABS: POINT-OF-CARE METER ID UU13113725
[2016-09-06 23:37] VITALS: BP 120/65
[2016-09-07 07:50] VITALS: BP 84/39
[2016-09-07 11:46] LABS: POINT-OF-CARE METER ID UU13113725
[2016-09-07 16:00] VITALS: BP 99/55
[2016-09-07 23:30] VITALS: BP 123/66
[2016-09-08] VITALS (29 sets, daily range): BP systolic 72–160; BP diastolic 41–92
[2016-09-08 05:56] LABS: POINT-OF-CARE METER ID UU13113725
[2016-09-08 11:38] LABS: POINT-OF-CARE METER ID UU13113725
[2016-09-08 14:47] LABS: METH RESISTANT S AUREUS PCR NEGATIVE (NEGATIVE)
[2016-09-08 14:50] LABS: PROBE CHECK PASS; SPECIMEN PROCESSING CONTROL PASS
[2016-09-08 14:52] LABS: HEMATOCRIT 23.9 % (38.0-50.0); MCH 31.2 PG (29.0-34.0); MCHC 30.5 G/DL (30.0-36.0); MCV 102.1 FL (86-99); MEAN PLAT.VOLUME 12.5 uM^3 (9.0-12.4); PLATELET COUNT 79 K/uL (156-360); RBC DIS.WIDTH-CV 20.1 % (11.8-14.6); RBC DIS.WIDTH-SD 70.2 % (39-53); RED BLOOD COUNT 2.34 M/uL (4.00-5.50); WHITE BLOOD COUNT 6.5 K/uL (4.1-10.2)
[2016-09-08 14:57] LABS: EOSINOPHIL (%) 0.5 % (0-5); IMMATURE GRANULOCYTE (%) 4.5 % (0.0-0.7); IMMATURE GRANULOCYTE COUNT 0.3 K/uL; LYMPHOCYTE COUNT 0.6 K/uL (1.0-2.8); MONOCYTE (%) 14.5 % (3-12); MONOCYTE COUNT 0.9 K/uL (0-0.8); NEUTROPHIL (%) 71.3 % (45-76); NEUTROPHIL COUNT 4.6 K/uL (1.8-6.4)
[2016-09-08 15:11] LABS: ANION GAP 8 MEQ/L (2-14); CHLORIDE 98 MEQ/L (99-109); POTASSIUM 4.1 MEQ/L (3.7-5.4); SAMPLE HEMOLYSIS CHECK 0; SAMPLE ICTERIC CHECK 0; SAMPLE LIPEMIA CHECK 0; SODIUM 135 MEQ/L (136-147)
[2016-09-08 15:13] LABS: GFR ESTIMATE (CALCULATED) 12 mL/min/; UREA NITROGEN (BUN) 70 mg/dL (9-23)
[2016-09-08 15:15] LABS: GLUCOSE 177 mg/dL (70-99)
[2016-09-08 15:17] LABS: TROP-I INTERPRETATION NEGATIVE; TROPONIN-I 0.28 ng/mL (0.0-0.30)
[2016-09-08 15:28] LABS: ABS NEUTROPHIL COUNT 5.37; ANISOCYTOSIS 2+; EOSINOPHIL ABS CT 0.13; HYPOCHROMASIA 2+; PLAT.SUFFICIENCY DECREASED
[2016-09-08 20:01] LABS: POINT-OF-CARE METER ID UU13113731
[2016-09-09] VITALS (12 sets, daily range): BP systolic 89–122; BP diastolic 53–64
[2016-09-09 06:05] LABS: CHLORIDE 97 MEQ/L (99-109); GFR ESTIMATE (CALCULATED) 10 mL/min/; POTASSIUM 4.4 MEQ/L (3.7-5.4); SODIUM 140 MEQ/L (136-147); UREA NITROGEN (BUN) 84 mg/dL (9-23)
[2016-09-09 06:07] LABS: GLUCOSE 60 mg/dL (70-99)
[2016-09-09 06:16] LABS: ANION GAP 15 MEQ/L (2-14); SAMPLE HEMOLYSIS CHECK 0; SAMPLE ICTERIC CHECK 0; SAMPLE LIPEMIA CHECK 0
[2016-09-09 07:37] LABS: POINT-OF-CARE METER ID UU13113731
[2016-09-09 07:59] LABS: POINT-OF-CARE METER ID UU13113731
[2016-09-09 10:21] LABS: HEMATOCRIT 28.6 % (38.0-50.0); MCH 29.4 PG (29.0-34.0); MCHC 31.8 G/DL (30.0-36.0); MCV 92.6 FL (86-99); MEAN PLAT.VOLUME 12.2 uM^3 (9.0-12.4); PLATELET COUNT 58 K/uL (156-360); RBC DIS.WIDTH-CV 24.5 % (11.8-14.6); RBC DIS.WIDTH-SD 80.4 % (39-53); RED BLOOD COUNT 3.09 M/uL (4.00-5.50); WHITE BLOOD COUNT 6.8 K/uL (4.1-10.2)
[2016-09-09 17:10] LABS: INTER. NORMALIZED RATIO 1.5; PROTHROMBIN TIME 15.4 (9.2-11.2); PTT 32.7 (25-32)
[2016-09-09 17:19] LABS: ANION GAP 8 MEQ/L (2-14); CHLORIDE 94 MEQ/L (99-109); GLUCOSE 50 mg/dL (70-99); SAMPLE HEMOLYSIS CHECK 0; SAMPLE ICTERIC CHECK 0; SAMPLE LIPEMIA CHECK 0; SODIUM 138 MEQ/L (136-147); TOTAL BILIRUBIN 1.7 MG/DL (0.0-1.0)
[2016-09-09 17:20] LABS: ALKALINE PHOSPHATASE 171 IU/L (3-129); GFR ESTIMATE (CALCULATED) 36 mL/min/; POTASSIUM 3.1 MEQ/L (3.7-5.4); UREA NITROGEN (BUN) 23 mg/dL (9-23)
[2016-09-09 17:37] LABS: POINT-OF-CARE METER ID UU13113731
[2016-09-09 18:39] LABS: POINT-OF-CARE METER ID UU13113731
[2016-09-09 18:39] LABS: POINT-OF-CARE METER ID UU13113731
[2016-09-09 19:26] LABS: POINT-OF-CARE METER ID UU13113731
[2016-09-09 21:30] LABS: POINT-OF-CARE METER ID UU13113731
[2016-09-10] VITALS (24 sets, daily range): BP systolic 104–155; BP diastolic 48–69
[2016-09-10 06:25] LABS: ALKALINE PHOSPHATASE 159 IU/L (3-129); ANION GAP 7 MEQ/L (2-14); CHLORIDE 96 MEQ/L (99-109); GLUCOSE 43 mg/dL (70-99); SAMPLE HEMOLYSIS CHECK 0; SAMPLE ICTERIC CHECK 0; SAMPLE LIPEMIA CHECK 0; SODIUM 138 MEQ/L (136-147); TOTAL BILIRUBIN 1.4 MG/DL (0.0-1.0)
[2016-09-10 06:28] LABS: GFR ESTIMATE (CALCULATED) 22 mL/min/; POTASSIUM 3.8 MEQ/L (3.7-5.4); UREA NITROGEN (BUN) 35 mg/dL (9-23)
[2016-09-10 07:45] LABS: POINT-OF-CARE METER ID UU13113803
[2016-09-10 12:35] LABS: HEMATOCRIT 22.2 % (38.0-50.0); MCH 29.4 PG (29.0-34.0); MCHC 31.5 G/DL (30.0-36.0); MCV 93.3 FL (86-99); MEAN PLAT.VOLUME 10.6 uM^3 (9.0-12.4); PLATELET COUNT 60 K/uL (156-360); RBC DIS.WIDTH-SD 76.9 % (39-53)
[2016-09-10 12:42] LABS: RED BLOOD COUNT 2.38 M/uL (4.00-5.50); WHITE BLOOD COUNT 4.5 K/uL (4.1-10.2)
[2016-09-10 12:55] LABS: INTER. NORMALIZED RATIO 1.5; PROTHROMBIN TIME 15.4 (9.2-11.2)
[2016-09-10 17:53] LABS: POINT-OF-CARE METER ID UU13113803
[2016-09-10 20:37] LABS: HEMATOCRIT 27.5 % (38.0-50.0); MCV 91.4 FL (86-99)
[2016-09-10 20:52] LABS: POINT-OF-CARE METER ID UU13113803
[2016-09-10 21:04] LABS: INTER. NORMALIZED RATIO 1.4; PROTHROMBIN TIME 13.9 (9.2-11.2)
[2016-09-11] VITALS (14 sets, daily range): BP systolic 109–139; BP diastolic 49–69
[2016-09-11 06:10] LABS: INTER. NORMALIZED RATIO 1.3; PROTHROMBIN TIME 13.5 (9.2-11.2)
[2016-09-11 06:16] LABS: ALKALINE PHOSPHATASE 171 IU/L (3-129); ANION GAP 7 MEQ/L (2-14); CHLORIDE 97 MEQ/L (99-109); GFR ESTIMATE (CALCULATED) 15 mL/min/; POTASSIUM 4.2 MEQ/L (3.7-5.4); SAMPLE HEMOLYSIS CHECK 0; SAMPLE ICTERIC CHECK 0; SAMPLE LIPEMIA CHECK 0; SODIUM 137 MEQ/L (136-147); TOTAL BILIRUBIN 1.4 MG/DL (0.0-1.0); UREA NITROGEN (BUN) 50 mg/dL (9-23)
[2016-09-11 06:17] LABS: GLUCOSE 82 mg/dL (70-99)
[2016-09-11 06:28] LABS: HEMATOCRIT 27.7 % (38.0-50.0); MCH 29.4 PG (29.0-34.0); MCHC 31.8 G/DL (30.0-36.0); MCV 92.6 FL (86-99); RBC DIS.WIDTH-CV 20.6 % (11.8-14.6); RBC DIS.WIDTH-SD 65.7 % (39-53); WHITE BLOOD COUNT 4.6 K/uL (4.1-10.2)
[2016-09-11 06:29] LABS: RED BLOOD COUNT 2.99 M/uL (4.00-5.50)
[2016-09-11 07:46] LABS: EOSINOPHIL (%) 0.4 % (0-5); HEMATOLOGY COMMENT 1 SMEAR COMPATIBLE; IMMATURE GRANULOCYTE (%) 0.7 % (0.0-0.7); LYMPHOCYTE COUNT 0.6 K/uL (1.0-2.8); MEAN PLAT.VOLUME 12.1 uM^3 (9.0-12.4); MONOCYTE (%) 21.7 % (3-12); NEUTROPHIL (%) 63.6 % (45-76); NEUTROPHIL COUNT 2.9 K/uL (1.8-6.4); NRBC (%) 0.8 /100 WBC (0-0); PLATELET COUNT 51 K/uL (156-360); USER ID STC
[2016-09-11 11:51] LABS: POINT-OF-CARE METER ID UU13113803
[2016-09-11 12:27] LABS: HEMATOCRIT 27.3 % (38.0-50.0); MCHC 31.5 G/DL (30.0-36.0); MCV 91.9 FL (86-99); MEAN PLAT.VOLUME 11.4 uM^3 (9.0-12.4); PLATELET COUNT 51 K/uL (156-360); RBC DIS.WIDTH-CV 20.6 % (11.8-14.6); RBC DIS.WIDTH-SD 65.6 % (39-53); RED BLOOD COUNT 2.97 M/uL (4.00-5.50); WHITE BLOOD COUNT 4.7 K/uL (4.1-10.2)
[2016-09-11 12:48] LABS: INTER. NORMALIZED RATIO 1.2; PROTHROMBIN TIME 12.7 (9.2-11.2)
[2016-09-11 12:58] LABS: D-DIMER LATEX POSITIVE
[2016-09-11 13:28] LABS: SCHISTOCYTES NONE SEEN
[2016-09-11 21:37] LABS: POINT-OF-CARE METER ID UU14174216
[2016-09-12 04:02] VITALS: BP 136/63
[2016-09-12 06:41] LABS: ANION GAP 4 MEQ/L (2-14); CHLORIDE 99 MEQ/L (99-109); GFR ESTIMATE (CALCULATED) 24 mL/min/; GLUCOSE 85 mg/dL (70-99); POTASSIUM 4.2 MEQ/L (3.7-5.4); SAMPLE HEMOLYSIS CHECK 0; SAMPLE ICTERIC CHECK 0; SAMPLE LIPEMIA CHECK 0; SODIUM 138 MEQ/L (136-147); UREA NITROGEN (BUN) 26 mg/dL (9-23)
[2016-09-12 07:20] VITALS: BP 118/62
[2016-09-12 08:41] LABS: FIBRINOGEN 477 MG/DL (160-450)
[2016-09-12 11:25] LABS: INTER. NORMALIZED RATIO 1.3; PROTHROMBIN TIME 12.8 (9.2-11.2)
[2016-09-12 11:40] VITALS: BP 142/72
[2016-09-12 13:34] LABS: POINT-OF-CARE METER ID UU13113681
[2016-09-12 17:37] LABS: POINT-OF-CARE METER ID UU13113781
[2016-09-12 18:18] LABS: MCH 29.7 PG (29.0-34.0); MCHC 31.5 G/DL (30.0-36.0); MCV 94.2 FL (86-99); PLATELET COUNT 79 K/uL (156-360); RBC DIS.WIDTH-CV 20.2 % (11.8-14.6); RBC DIS.WIDTH-SD 65.7 % (39-53); RED BLOOD COUNT 2.76 M/uL (4.00-5.50)
[2016-09-12 18:26] LABS: WHITE BLOOD COUNT 6.5 K/uL (4.1-10.2)
[2016-09-12 18:51] LABS: INTER. NORMALIZED RATIO 1.3; PROTHROMBIN TIME 13.1 (9.2-11.2)
[2016-09-12 21:02] LABS: POINT-OF-CARE METER ID UU13113781
[2016-09-13] VITALS (16 sets, daily range): BP systolic 53–159; BP diastolic 44–76
[2016-09-13 07:55] LABS: POINT-OF-CARE METER ID UU14174216
[2016-09-13 10:14] LABS: HEMATOCRIT 23.8 % (38.0-50.0); MCH 29.7 PG (29.0-34.0); MCHC 31.1 G/DL (30.0-36.0); MCV 95.6 FL (86-99); RBC DIS.WIDTH-SD 65.3 % (39-53); RED BLOOD COUNT 2.49 M/uL (4.00-5.50); WHITE BLOOD COUNT 5.4 K/uL (4.1-10.2)
[2016-09-13 10:26] LABS: EOSINOPHIL (%) 1.3 % (0-5); EOSINOPHIL COUNT 0.1 K/uL (0-0.3); IMMATURE GRANULOCYTE (%) 0.6 % (0.0-0.7); LYMPHOCYTE COUNT 0.9 K/uL (1.0-2.8); MEAN PLAT.VOLUME 10.1 uM^3 (9.0-12.4); MONOCYTE (%) 13.5 % (3-12); MONOCYTE COUNT 0.7 K/uL (0-0.8); NEUTROPHIL (%) 68.1 % (45-76); NEUTROPHIL COUNT 3.7 K/uL (1.8-6.4)
[2016-09-13 10:27] LABS: PLATELET COUNT 137 K/uL (156-360)
[2016-09-13 10:37] LABS: ALKALINE PHOSPHATASE 194 IU/L (3-129); ANION GAP 7 MEQ/L (2-14); CHLORIDE 100 MEQ/L (99-109); GFR ESTIMATE (CALCULATED) 26 mL/min/; GLUCOSE 82 mg/dL (70-99); POTASSIUM 4.2 MEQ/L (3.7-5.4); SAMPLE HEMOLYSIS CHECK 0; SAMPLE ICTERIC CHECK 0; SAMPLE LIPEMIA CHECK 0; SODIUM 138 MEQ/L (136-147); TOTAL BILIRUBIN 1.5 MG/DL (0.0-1.0); UREA NITROGEN (BUN) 25 mg/dL (9-23)
[2016-09-13 18:04] LABS: HEMATOCRIT 29.7 % (38.0-50.0); HEMATOLOGY COMMENT 1 SMEAR COMPATIBLE; MCHC 32.3 G/DL (30.0-36.0); MCV 92.8 FL (86-99); MEAN PLAT.VOLUME 10.4 uM^3 (9.0-12.4); PLATELET COUNT 127 K/uL (156-360); RBC DIS.WIDTH-CV 17.7 % (11.8-14.6); RBC DIS.WIDTH-SD 55.7 % (39-53); WHITE BLOOD COUNT 9.9 K/uL (4.1-10.2)
[2016-09-13 22:44] LABS: METH RESISTANT S AUREUS PCR NEGATIVE (NEGATIVE)
[2016-09-13 22:47] LABS: PROBE CHECK PASS; SPECIMEN PROCESSING CONTROL PASS
[2016-09-14] VITALS (18 sets, daily range): BP systolic 91–122; BP diastolic 44–59
[2016-09-14 01:40] LABS: POINT-OF-CARE METER ID UU13113803
[2016-09-14 06:39] LABS: ANION GAP 9 MEQ/L (2-14); CHLORIDE 102 MEQ/L (99-109); GFR ESTIMATE (CALCULATED) 19 mL/min/; GLUCOSE 143 mg/dL (70-99); POTASSIUM 4.5 MEQ/L (3.7-5.4); SAMPLE HEMOLYSIS CHECK 0; SAMPLE ICTERIC CHECK 0; SAMPLE LIPEMIA CHECK 0; SODIUM 140 MEQ/L (136-147); UREA NITROGEN (BUN) 40 mg/dL (9-23)
[2016-09-14 09:53] LABS: HEMATOCRIT 21.3 % (38.0-50.0); MCH 30.7 PG (29.0-34.0); MCHC 33.3 G/DL (30.0-36.0); MCV 92.2 FL (86-99); MEAN PLAT.VOLUME 11.3 uM^3 (9.0-12.4); PLATELET COUNT 91 K/uL (156-360); RBC DIS.WIDTH-CV 18.9 % (11.8-14.6); RBC DIS.WIDTH-SD 58.5 % (39-53)
[2016-09-14 09:54] LABS: RED BLOOD COUNT 2.31 M/uL (4.00-5.50); WHITE BLOOD COUNT 5.4 K/uL (4.1-10.2)
[2016-09-14 15:59] LABS: HEMATOCRIT 25.1 % (38.0-50.0); MCV 92.6 FL (86-99)
[2016-09-14 17:56] LABS: POINT-OF-CARE METER ID UU13113748
[2016-09-14 22:07] LABS: POINT-OF-CARE METER ID UU13113748
[2016-09-15] VITALS: BP 92/48
[2016-09-15 04:00] VITALS: BP 96/66
[2016-09-15 06:53] LABS: ANION GAP 6 MEQ/L (2-14); CHLORIDE 97 MEQ/L (99-109); GFR ESTIMATE (CALCULATED) 18 mL/min/; GLUCOSE 145 mg/dL (70-99); POTASSIUM 4.3 MEQ/L (3.7-5.4); SAMPLE HEMOLYSIS CHECK 0; SAMPLE ICTERIC CHECK 0; SAMPLE LIPEMIA CHECK 0; SODIUM 137 MEQ/L (136-147); UREA NITROGEN (BUN) 36 mg/dL (9-23)
[2016-09-15 06:54] LABS: ANION GAP 8 MEQ/L (2-14); CHLORIDE 97 MEQ/L (99-109); GFR ESTIMATE (CALCULATED) 19 mL/min/; GLUCOSE 143 mg/dL (70-99); POTASSIUM 4.3 MEQ/L (3.7-5.4); SAMPLE HEMOLYSIS CHECK 0; SAMPLE ICTERIC CHECK 0; SAMPLE LIPEMIA CHECK 0; SODIUM 138 MEQ/L (136-147); UREA NITROGEN (BUN) 35 mg/dL (9-23)
[2016-09-15 06:56] LABS: ALKALINE PHOSPHATASE 260 IU/L (3-129); TOTAL BILIRUBIN 2.6 MG/DL (0.0-1.0)
[2016-09-15 08:00] VITALS: BP 103/66
[2016-09-15 12:00] VITALS: BP 89/48
[2016-09-15 12:59] LABS: POINT-OF-CARE METER ID UU14162636
[2016-09-15 16:00] VITALS: BP 97/60
[2016-09-15 20:00] VITALS: BP 105/59
[2016-09-15 22:24] LABS: POINT-OF-CARE METER ID UU14174217
[2016-09-16] VITALS (7 sets, daily range): BP systolic 100–132; BP diastolic 53–84
[2016-09-16 06:57] LABS: EOSINOPHIL (%) 1.8 % (0-5); EOSINOPHIL COUNT 0.1 K/uL (0-0.3); HEMATOCRIT 24.9 % (38.0-50.0); IMMATURE GRANULOCYTE (%) 0.4 % (0.0-0.7); IMMATURE GRANULOCYTE COUNT 0.2 K/uL; LYMPHOCYTE COUNT 0.8 K/uL (1.0-2.8); MCH 30.6 PG (29.0-34.0); MCHC 31.3 G/DL (30.0-36.0); MCV 97.6 FL (86-99); MEAN PLAT.VOLUME 11.1 uM^3 (9.0-12.4); MONOCYTE (%) 14.9 % (3-12); MONOCYTE COUNT 0.8 K/uL (0-0.8); NEUTROPHIL (%) 66.2 % (45-76); NEUTROPHIL COUNT 3.4 K/uL (1.8-6.4); PLATELET COUNT 90 K/uL (156-360); RBC DIS.WIDTH-CV 18.4 % (11.8-14.6); RBC DIS.WIDTH-SD 56.7 % (39-53); RED BLOOD COUNT 2.55 M/uL (4.00-5.50); WHITE BLOOD COUNT 5.1 K/uL (4.1-10.2)
[2016-09-16 07:55] LABS: ANION GAP 8 MEQ/L (2-14); CHLORIDE 99 MEQ/L (99-109); POTASSIUM 4.6 MEQ/L (3.7-5.4); SAMPLE HEMOLYSIS CHECK 0; SAMPLE ICTERIC CHECK 0; SAMPLE LIPEMIA CHECK 0; SODIUM 138 MEQ/L (136-147); UREA NITROGEN (BUN) 52 mg/dL (9-23)
[2016-09-16 07:58] LABS: GFR ESTIMATE (CALCULATED) 14 mL/min/; GLUCOSE 91 mg/dL (70-99); VANCOMYCIN, TROUGH 22.6 MCG/ML (10-20)
[2016-09-16 13:46] LABS: POINT-OF-CARE METER ID UU13113698
[2016-09-16 15:08] LABS: POINT-OF-CARE METER ID UU13113698
[2016-09-16 22:05] LABS: POINT-OF-CARE METER ID UU13113698
[2016-09-17 04:12] VITALS: BP 102/78
[2016-09-17 08:00] VITALS: BP 132/68
[2016-09-17 08:04] LABS: POINT-OF-CARE METER ID UU13113698
[2016-09-17 11:57] VITALS: BP 143/76
[2016-09-17 16:01] LABS: POINT-OF-CARE METER ID UU13113698
[2016-09-17 16:02] VITALS: BP 117/58
[2016-09-17 19:53] VITALS: BP 131/70
[2016-09-17 23:00] VITALS: BP 123/64
[2016-09-18 03:29] VITALS: BP 121/63
[2016-09-18 07:43] LABS: POINT-OF-CARE METER ID UU13113698
[2016-09-18 08:30] LABS: HEMATOCRIT 26.3 % (38.0-50.0); MCHC 32.3 G/DL (30.0-36.0); MEAN PLAT.VOLUME 11.3 uM^3 (9.0-12.4); PLATELET COUNT 106 K/uL (156-360); RBC DIS.WIDTH-SD 63.1 % (39-53); RED BLOOD COUNT 2.74 M/uL (4.00-5.50); WHITE BLOOD COUNT 4.5 K/uL (4.1-10.2)
[2016-09-18 08:47] LABS: ANION GAP 11 MEQ/L (2-14); CHLORIDE 95 MEQ/L (99-109); GFR ESTIMATE (CALCULATED) 16 mL/min/; GLUCOSE 106 mg/dL (70-99); SAMPLE HEMOLYSIS CHECK 0; SAMPLE ICTERIC CHECK 0; SAMPLE LIPEMIA CHECK 0; SODIUM 135 MEQ/L (136-147); UREA NITROGEN (BUN) 43 mg/dL (9-23)
[2016-09-18 12:15] VITALS: BP 94/61
[2016-09-18 16:00] VITALS: BP 127/77
[2016-09-18 16:07] LABS: POINT-OF-CARE METER ID UU13113698
[2016-09-18 19:20] VITALS: BP 121/74
[2016-09-18 21:17] LABS: POINT-OF-CARE METER ID UU13113781
[2016-09-18 23:45] VITALS: BP 119/69
[2016-09-19 03:06] VITALS: BP 115/63
[2016-09-19 06:44] LABS: ANION GAP 12 MEQ/L (2-14); CHLORIDE 95 MEQ/L (99-109); GFR ESTIMATE (CALCULATED) 20 mL/min/; GLUCOSE 118 mg/dL (70-99); POTASSIUM 3.7 MEQ/L (3.7-5.4); SAMPLE HEMOLYSIS CHECK 0; SAMPLE ICTERIC CHECK 0; SAMPLE LIPEMIA CHECK 0; SODIUM 138 MEQ/L (136-147); UREA NITROGEN (BUN) 33 mg/dL (9-23)
[2016-09-19 07:35] VITALS: BP 113/61
[2016-09-19 11:25] LABS: POINT-OF-CARE METER ID UU13113781
[2016-09-19 11:39] VITALS: BP 131/74
[2016-09-19 12:46] LABS: C DIFF TOXIN NEGATIVE (NEGATIVE)
[2016-09-19 12:48] LABS: PROBE CHECK PASS; SPECIMEN PROCESSING CONTROL PASS
[2016-09-19 15:43] VITALS: BP 118/59
[2016-09-19 16:41] LABS: POINT-OF-CARE METER ID UU13113698
[2016-09-19 18:35] VITALS: BP 127/62
[2016-09-19 20:07] VITALS: BP 112/56
[2016-09-19 22:43] LABS: POINT-OF-CARE METER ID UU13113717
[2016-09-20 00:07] VITALS: BP 116/60
[2016-09-20 04:03] VITALS: BP 120/78
[2016-09-20 06:24] LABS: POINT-OF-CARE METER ID UU13113717
[2016-09-20 08:16] LABS: HEMATOCRIT 24.2 % (38.0-50.0); MCH 31.6 PG (29.0-34.0); MCHC 31.8 G/DL (30.0-36.0); MCV 99.2 FL (86-99); MEAN PLAT.VOLUME 11.2 uM^3 (9.0-12.4); PLATELET COUNT 130 K/uL (156-360); RBC DIS.WIDTH-CV 20.4 % (11.8-14.6); RBC DIS.WIDTH-SD 72.2 % (39-53); RED BLOOD COUNT 2.44 M/uL (4.00-5.50); WHITE BLOOD COUNT 4.1 K/uL (4.1-10.2)
[2016-09-20 08:22] LABS: ANION GAP 10 MEQ/L (2-14); CHLORIDE 93 MEQ/L (99-109); GFR ESTIMATE (CALCULATED) 15 mL/min/; GLUCOSE 105 mg/dL (70-99); POTASSIUM 3.6 MEQ/L (3.7-5.4); SAMPLE HEMOLYSIS CHECK 0; SAMPLE ICTERIC CHECK 0; SAMPLE LIPEMIA CHECK 0; SODIUM 134 MEQ/L (136-147); UREA NITROGEN (BUN) 44 mg/dL (9-23)
[2016-09-20 08:32] LABS: IMMATURE GRANULOCYTE (%) 0.7 % (0.0-0.7); LYMPHOCYTE COUNT 0.7 K/uL (1.0-2.8); MONOCYTE (%) 8.6 % (3-12); MONOCYTE COUNT 0.4 K/uL (0-0.8); NEUTROPHIL (%) 73.2 % (45-76)
[2016-09-20 13:32] LABS: POINT-OF-CARE METER ID UU13113717
[2016-09-20 16:07] VITALS: BP 122/64
[2016-09-20 16:33] LABS: POINT-OF-CARE METER ID UU14149397
[2016-09-20 16:57] LABS: POINT-OF-CARE METER ID UU14149397
[2016-09-20 20:09] VITALS: BP 130/70
[2016-09-20 23:47] VITALS: BP 112/61
[2016-09-21 07:39] VITALS: BP 112/55
[2016-09-21 16:09] VITALS: BP 130/74
[2016-09-21 20:12] VITALS: BP 128/78
[2016-09-22 00:17] VITALS: BP 113/61
[2016-09-22 04:53] VITALS: BP 120/70
[2016-09-22 05:58] LABS: POINT-OF-CARE METER ID UU13113717
[2016-09-22 06:15] LABS: POINT-OF-CARE METER ID UU13113717
[2016-09-22 08:35] VITALS: BP 138/75
[2016-09-22 11:45] VITALS: BP 151/75
[2016-09-22 11:59] LABS: POINT-OF-CARE METER ID UU13113717
[2016-09-22 15:51] VITALS: BP 125/65
[2016-09-22 19:32] VITALS: BP 131/73
[2016-09-22 20:55] LABS: POINT-OF-CARE METER ID UU13113717
[2016-09-23 00:04] VITALS: BP 123/74
[2016-09-23 04:11] VITALS: BP 118/67
[2016-09-23 05:34] LABS: POINT-OF-CARE METER ID UU13113717; POINT-OF-CARE USER ID STWHLR41
[2016-09-23 07:30] VITALS: BP 123/77
[2016-09-23 09:24] LABS: EOSINOPHIL (%) 1.6 % (0-5); EOSINOPHIL COUNT 0.1 K/uL (0-0.3); HEMATOCRIT 26.5 % (38.0-50.0); IMMATURE GRANULOCYTE (%) 0.9 % (0.0-0.7); IMMATURE GRANULOCYTE COUNT 0.1 K/uL; LYMPHOCYTE COUNT 0.8 K/uL (1.0-2.8); MCH 31.6 PG (29.0-34.0); MCHC 31.7 G/DL (30.0-36.0); MCV 99.6 FL (86-99); MEAN PLAT.VOLUME 11.2 uM^3 (9.0-12.4); MONOCYTE (%) 8.5 % (3-12); MONOCYTE COUNT 0.5 K/uL (0-0.8); NEUTROPHIL (%) 74.2 % (45-76); NEUTROPHIL COUNT 4.1 K/uL (1.8-6.4); PLATELET COUNT 179 K/uL (156-360); RBC DIS.WIDTH-CV 20.5 % (11.8-14.6); RBC DIS.WIDTH-SD 74.2 % (39-53); RED BLOOD COUNT 2.66 M/uL (4.00-5.50); WHITE BLOOD COUNT 5.5 K/uL (4.1-10.2)
[2016-09-23 09:26] LABS: INTER. NORMALIZED RATIO 1.3; PROTHROMBIN TIME 13.3 (9.2-11.2)
[2016-09-23 09:38] LABS: ANION GAP 10 MEQ/L (2-14); CHLORIDE 90 MEQ/L (99-109); GFR ESTIMATE (CALCULATED) 14 mL/min/; GLUCOSE 101 mg/dL (70-99); POTASSIUM 4.1 MEQ/L (3.7-5.4); SAMPLE HEMOLYSIS CHECK 0; SAMPLE ICTERIC CHECK 0; SAMPLE LIPEMIA CHECK 0; SODIUM 132 MEQ/L (136-147); UREA NITROGEN (BUN) 48 mg/dL (9-23)
[2016-09-23 16:22] VITALS: BP 130/84
[2016-09-23 16:47] LABS: POINT-OF-CARE METER ID UU14149397
[2016-09-23 19:55] VITALS: BP 139/69
[2016-09-23 23:52] VITALS: BP 142/72
[2016-09-24 04:24] VITALS: BP 135/70
[2016-09-24 07:54] VITALS: BP 143/77
[2016-09-24 08:00] LABS: POINT-OF-CARE METER ID UU13113717
[2016-09-24 11:27] VITALS: BP 145/74
[2016-09-24 15:16] VITALS: BP 150/72
[2016-09-24 20:26] VITALS: BP 130/69
[2016-09-24 21:57] LABS: POINT-OF-CARE METER ID UU13113717
[2016-09-25 02:25] VITALS: BP 132/78
[2016-09-25 06:12] LABS: POINT-OF-CARE METER ID UU14149397
[2016-09-25 08:13] LABS: HEMATOCRIT 27.5 % (38.0-50.0); MCH 31.6 PG (29.0-34.0); MCHC 31.3 G/DL (30.0-36.0); MCV 101.1 FL (86-99); MEAN PLAT.VOLUME 10.4 uM^3 (9.0-12.4); PLATELET COUNT 199 K/uL (156-360); RBC DIS.WIDTH-CV 21.6 % (11.8-14.6); RBC DIS.WIDTH-SD 78.5 % (39-53); RED BLOOD COUNT 2.72 M/uL (4.00-5.50); WHITE BLOOD COUNT 5.6 K/uL (4.1-10.2)
[2016-09-25 08:18] LABS: EOSINOPHIL (%) 1.2 % (0-5); EOSINOPHIL COUNT 0.1 K/uL (0-0.3); IMMATURE GRANULOCYTE (%) 1.6 % (0.0-0.7); IMMATURE GRANULOCYTE COUNT 0.1 K/uL; LYMPHOCYTE COUNT 0.8 K/uL (1.0-2.8); MONOCYTE (%) 11.9 % (3-12); MONOCYTE COUNT 0.7 K/uL (0-0.8); NEUTROPHIL (%) 69.8 % (45-76); NEUTROPHIL COUNT 3.9 K/uL (1.8-6.4)
[2016-09-25 08:31] LABS: ALKALINE PHOSPHATASE 384 IU/L (3-129); ANION GAP 6 MEQ/L (2-14); CHLORIDE 94 MEQ/L (99-109); GFR ESTIMATE (CALCULATED) 18 mL/min/; GLUCOSE 119 mg/dL (70-99); POTASSIUM 4.2 MEQ/L (3.7-5.4); SAMPLE HEMOLYSIS CHECK 0; SAMPLE ICTERIC CHECK 0; SAMPLE LIPEMIA CHECK 0; SODIUM 135 MEQ/L (136-147); TOTAL BILIRUBIN 1.1 MG/DL (0.0-1.0); UREA NITROGEN (BUN) 32 mg/dL (9-23)
[2016-09-25 12:28] LABS: POINT-OF-CARE METER ID UU13113681; POINT-OF-CARE USER ID DROKMM72
[2016-09-25 16:02] VITALS: BP 132/70
[2016-09-25 16:34] LABS: POINT-OF-CARE METER ID UU14149397
[2016-09-25 22:05] LABS: POINT-OF-CARE METER ID UU13113717
[2016-09-26] VITALS (7 sets, daily range): BP systolic 122–159; BP diastolic 69–91
[2016-09-26 07:10] LABS: POINT-OF-CARE METER ID UU14149397
[2016-09-26 11:43] LABS: POINT-OF-CARE METER ID UU14149397
[2016-09-26 17:27] LABS: POINT-OF-CARE METER ID UU13113717
[2016-09-26 19:15] LABS: POINT-OF-CARE METER ID UU13113675
[2016-09-26 21:43] LABS: POINT-OF-CARE METER ID UU13113717
[2016-09-27 08:07] LABS: HEMATOCRIT 28.6 % (38.0-50.0); MCH 32.3 PG (29.0-34.0); MCHC 31.5 G/DL (30.0-36.0); MCV 102.5 FL (86-99); MEAN PLAT.VOLUME 10.5 uM^3 (9.0-12.4); PLATELET COUNT 219 K/uL (156-360); RBC DIS.WIDTH-CV 22.2 % (11.8-14.6); RBC DIS.WIDTH-SD 82.4 % (39-53); RED BLOOD COUNT 2.79 M/uL (4.00-5.50); WHITE BLOOD COUNT 5.4 K/uL (4.1-10.2)
[2016-09-27 08:15] LABS: BASOPHIL COUNT 0.1 K/uL (0-0.1); EOSINOPHIL (%) 0.9 % (0-5); EOSINOPHIL COUNT 0.1 K/uL (0-0.3); IMMATURE GRANULOCYTE (%) 1.7 % (0.0-0.7); IMMATURE GRANULOCYTE COUNT 0.1 K/uL; LYMPHOCYTE COUNT 0.9 K/uL (1.0-2.8); MONOCYTE (%) 14.8 % (3-12); MONOCYTE COUNT 0.8 K/uL (0-0.8); NEUTROPHIL (%) 64.5 % (45-76); NEUTROPHIL COUNT 3.5 K/uL (1.8-6.4)
[2016-09-27 08:17] LABS: ANION GAP 5 MEQ/L (2-14); CHLORIDE 94 MEQ/L (99-109); POTASSIUM 4.1 MEQ/L (3.7-5.4); SAMPLE HEMOLYSIS CHECK 0; SAMPLE ICTERIC CHECK 0; SAMPLE LIPEMIA CHECK 0; SODIUM 135 MEQ/L (136-147); TOTAL BILIRUBIN 1.1 MG/DL (0.0-1.0)
[2016-09-27 08:22] LABS: ALKALINE PHOSPHATASE 457 IU/L (3-129); GFR ESTIMATE (CALCULATED) 19 mL/min/; GLUCOSE 131 mg/dL (70-99); UREA NITROGEN (BUN) 29 mg/dL (9-23)
[2016-09-27 13:16] VITALS: BP 124/75
[2016-09-27 15:25] VITALS: BP 138/79
[2016-09-27 20:00] VITALS: BP 132/78
[2016-09-27 21:09] LABS: POINT-OF-CARE METER ID UU14188577
[2016-09-28] VITALS (7 sets, daily range): BP systolic 118–139; BP diastolic 67–81
[2016-09-28 17:04] LABS: POINT-OF-CARE METER ID UU14188577
[2016-09-29 04:25] VITALS: BP 139/72
[2016-09-29 07:53] VITALS: BP 143/79
[2016-09-29 11:43] VITALS: BP 144/80
[2016-09-29 12:05] LABS: POINT-OF-CARE METER ID UU14188577
[2016-09-29 12:34] LABS: HBSG INDEX 0.21
[2016-09-29 13:44] LABS: HEPATITIS B SURFACE ANTIBODY EQUIVOCAL
[2016-09-29 16:43] VITALS: BP 160/80
[2016-09-29 16:52] LABS: POINT-OF-CARE METER ID UU14188577
[2016-09-29 19:38] VITALS: BP 125/73
[2016-09-29 21:45] LABS: POINT-OF-CARE METER ID UU14188577
[2016-09-29 23:19] VITALS: BP 137/82
[2016-09-30 03:28] VITALS: BP 134/80
[2016-09-30 06:54] LABS: POINT-OF-CARE METER ID UU14149397
[2016-09-30 08:22] LABS: ALKALINE PHOSPHATASE 448 IU/L (3-129); ANION GAP 5 MEQ/L (2-14); CHLORIDE 92 MEQ/L (99-109); GFR ESTIMATE (CALCULATED) 14 mL/min/; GLUCOSE 109 mg/dL (70-99); POTASSIUM 4.7 MEQ/L (3.7-5.4); SAMPLE HEMOLYSIS CHECK 0; SAMPLE ICTERIC CHECK 0; SAMPLE LIPEMIA CHECK 0; SODIUM 133 MEQ/L (136-147); UREA NITROGEN (BUN) 43 mg/dL (9-23)
[2016-09-30 09:06] LABS: BASOPHIL COUNT 0.1 K/uL (0-0.1); EOSINOPHIL (%) 1.1 % (0-5); EOSINOPHIL COUNT 0.1 K/uL (0-0.3); HEMATOCRIT 28.3 % (38.0-50.0); IMMATURE GRANULOCYTE (%) 0.3 % (0.0-0.7); LYMPHOCYTE COUNT 0.9 K/uL (1.0-2.8); MCH 32.7 PG (29.0-34.0); MCHC 32.5 G/DL (30.0-36.0); MCV 100.7 FL (86-99); MEAN PLAT.VOLUME 10.7 uM^3 (9.0-12.4); MONOCYTE (%) 13.2 % (3-12); MONOCYTE COUNT 0.8 K/uL (0-0.8); NEUTROPHIL (%) 69.8 % (45-76); NEUTROPHIL COUNT 4.4 K/uL (1.8-6.4); PLATELET COUNT 206 K/uL (156-360); RBC DIS.WIDTH-CV 21.9 % (11.8-14.6); RBC DIS.WIDTH-SD 79.7 % (39-53); RED BLOOD COUNT 2.81 M/uL (4.00-5.50); WHITE BLOOD COUNT 6.3 K/uL (4.1-10.2)
[2016-09-30 09:24] LABS: HEMATOLOGY COMMENT 1 REV; USER ID NJR
[2016-09-30 12:22] LABS: POINT-OF-CARE METER ID UU13113681; POINT-OF-CARE USER ID DROKMM72
[2016-09-30 13:29] VITALS: BP 125/76
[2016-09-30 13:39] LABS: POINT-OF-CARE METER ID UU14149397
[2016-09-30 15:52] VITALS: BP 150/86
[2016-09-30 16:47] LABS: POINT-OF-CARE METER ID UU14149397
[2016-09-30 19:33] VITALS: BP 140/76
[2016-09-30 21:52] LABS: POINT-OF-CARE METER ID UU14188577
[2016-09-30 23:09] VITALS: BP 125/77
[2016-10-01 03:11] VITALS: BP 129/71
[2016-10-01 04:30] VITALS: BP 121/82
[2016-10-01 07:34] VITALS: BP 138/72
[2016-10-01 08:38] LABS: POINT-OF-CARE METER ID UU14149397
[2016-10-01 16:37] LABS: POINT-OF-CARE METER ID UU14149397
[2016-10-01 22:43] LABS: POINT-OF-CARE METER ID UU14149397
[2016-10-01 23:46] VITALS: BP 125/80
[2016-10-02 06:18] LABS: POINT-OF-CARE METER ID UU14188577
[2016-10-02 08:38] LABS: ANION GAP 6 MEQ/L (2-14); CHLORIDE 94 MEQ/L (99-109); POTASSIUM 4.6 MEQ/L (3.7-5.4); SAMPLE HEMOLYSIS CHECK 0; SAMPLE ICTERIC CHECK 0; SAMPLE LIPEMIA CHECK 0; SODIUM 134 MEQ/L (136-147)
[2016-10-02 08:45] LABS: GFR ESTIMATE (CALCULATED) 18 mL/min/; GLUCOSE 100 mg/dL (70-99); UREA NITROGEN (BUN) 32 mg/dL (9-23)
[2016-10-02 08:49] LABS: HEMATOCRIT 28.9 % (38.0-50.0); MCHC 31.1 G/DL (30.0-36.0); MCV 102.8 FL (86-99); MEAN PLAT.VOLUME 10.8 uM^3 (9.0-12.4); PLATELET COUNT 202 K/uL (156-360); RBC DIS.WIDTH-CV 21.7 % (11.8-14.6); RBC DIS.WIDTH-SD 76.1 % (39-53); RED BLOOD COUNT 2.81 M/uL (4.00-5.50); WHITE BLOOD COUNT 5.9 K/uL (4.1-10.2)
[2016-10-02 16:12] VITALS: BP 136/69
[2016-10-02 21:13] VITALS: BP 155/86
[2016-10-02 23:53] VITALS: BP 151/85
[2016-10-03 05:15] VITALS: BP 146/82
[2016-10-03 07:55] VITALS: BP 154/80
[2016-10-03 10:55] VITALS: BP 149/77
[2016-10-03 12:12] LABS: POINT-OF-CARE METER ID UU14149397
[2016-10-03 16:31] VITALS: BP 141/85
[2016-10-03 17:09] LABS: POINT-OF-CARE METER ID UU14149397
[2016-10-03 19:30] VITALS: BP 147/75
[2016-10-04 00:30] VITALS: BP 128/69
[2016-10-04 06:26] LABS: POINT-OF-CARE METER ID UU14188577
[2016-10-04 06:35] VITALS: BP 121/74
[2016-10-04 08:13] VITALS: BP 136/78
[2016-10-04 11:11] VITALS: BP 143/78
[2016-10-04 11:22] LABS: POINT-OF-CARE METER ID UU14188577
[2016-10-04 13:01] LABS: HEMATOCRIT 29.4 % (38.0-50.0); MCH 32.1 PG (29.0-34.0); MCHC 31.3 G/DL (30.0-36.0); MCV 102.4 FL (86-99); MEAN PLAT.VOLUME 10.8 uM^3 (9.0-12.4); PLATELET COUNT 235 K/uL (156-360); RBC DIS.WIDTH-CV 22.2 % (11.8-14.6); RBC DIS.WIDTH-SD 81.1 % (39-53); RED BLOOD COUNT 2.87 M/uL (4.00-5.50); WHITE BLOOD COUNT 6.9 K/uL (4.1-10.2)
[2016-10-04 13:07] LABS: EOSINOPHIL (%) 3.5 % (0-5); EOSINOPHIL COUNT 0.2 K/uL (0-0.3); IMMATURE GRANULOCYTE (%) 0.3 % (0.0-0.7); MONOCYTE (%) 9.8 % (3-12); MONOCYTE COUNT 0.7 K/uL (0-0.8); NEUTROPHIL COUNT 4.9 K/uL (1.8-6.4)
[2016-10-04 13:15] LABS: ANION GAP 8 MEQ/L (2-14); CHLORIDE 97 MEQ/L (99-109); POTASSIUM 4.7 MEQ/L (3.7-5.4); SAMPLE HEMOLYSIS CHECK 0; SAMPLE ICTERIC CHECK 0; SAMPLE LIPEMIA CHECK 0; SODIUM 135 MEQ/L (136-147)
[2016-10-04 13:20] LABS: GFR ESTIMATE (CALCULATED) 17 mL/min/; GLUCOSE 109 mg/dL (70-99); UREA NITROGEN (BUN) 28 mg/dL (9-23)
[2016-10-04 16:30] VITALS: BP 146/94
[2016-10-04 17:07] LABS: POINT-OF-CARE METER ID UU14188577
[2016-10-04 19:30] VITALS: BP 144/66
[2016-10-04 21:43] LABS: POINT-OF-CARE METER ID UU14149397; POINT-OF-CARE USER ID 609231305
[2016-10-05 00:25] VITALS: BP 118/73
[2016-10-05 05:03] VITALS: BP 132/79
[2016-10-05 08:13] VITALS: BP 139/77
[2016-10-05 12:12] VITALS: BP 136/70
[2016-10-05 12:20] LABS: POINT-OF-CARE METER ID UU14188577
[2016-10-05 15:59] VITALS: BP 120/76
[2016-10-05 23:40] VITALS: BP 133/64
[2016-10-06 07:14] LABS: ANION GAP 9 MEQ/L (2-14); CHLORIDE 93 MEQ/L (99-109); GFR ESTIMATE (CALCULATED) 16 mL/min/; POTASSIUM 3.8 MEQ/L (3.7-5.4); SAMPLE HEMOLYSIS CHECK 0; SAMPLE ICTERIC CHECK 0; SAMPLE LIPEMIA CHECK 0; SODIUM 137 MEQ/L (136-147); UREA NITROGEN (BUN) 28 mg/dL (9-23)
[2016-10-06 07:21] LABS: EOSINOPHIL (%) 0 % (0-5); HEMATOCRIT 30.1 % (38.0-50.0); IMMATURE GRANULOCYTE (%) 0.4 % (0.0-0.7); LYMPHOCYTE COUNT 0.9 K/uL (1.0-2.8); MCHC 32.6 G/DL (30.0-36.0); MCV 101.3 FL (86-99); MEAN PLAT.VOLUME 11.2 uM^3 (9.0-12.4); MONOCYTE (%) 7.9 % (3-12); MONOCYTE COUNT 0.8 K/uL (0-0.8); NEUTROPHIL (%) 83.5 % (45-76); NEUTROPHIL COUNT 8.8 K/uL (1.8-6.4); PLATELET COUNT 233 K/uL (156-360); RBC DIS.WIDTH-SD 79.8 % (39-53); RED BLOOD COUNT 2.97 M/uL (4.00-5.50); WHITE BLOOD COUNT 10.5 K/uL (4.1-10.2)
[2016-10-06 07:22] LABS: GLUCOSE 167 mg/dL (70-99)
[2016-10-06 07:39] VITALS: BP 130/82
[2016-10-06 12:02] LABS: POINT-OF-CARE METER ID UU14188577
[2016-10-06 17:00] VITALS: BP 146/79
[2016-10-06 17:18] LABS: POINT-OF-CARE METER ID UU14188577
[2016-10-06 22:09] LABS: POINT-OF-CARE METER ID UU14188577
[2016-10-07 00:57] VITALS: BP 117/68
[2016-10-07 08:18] LABS: ANION GAP 10 MEQ/L (2-14); CHLORIDE 94 MEQ/L (99-109); POTASSIUM 3.3 MEQ/L (3.7-5.4); SAMPLE HEMOLYSIS CHECK 0; SAMPLE ICTERIC CHECK 0; SAMPLE LIPEMIA CHECK 0; SODIUM 136 MEQ/L (136-147)
[2016-10-07 08:24] LABS: GFR ESTIMATE (CALCULATED) 14 mL/min/; GLUCOSE 151 mg/dL (70-99); UREA NITROGEN (BUN) 37 mg/dL (9-23)
[2016-10-07 09:16] LABS: EOSINOPHIL (%) 2.1 % (0-5); EOSINOPHIL COUNT 0.1 K/uL (0-0.3); HEMATOCRIT 26.2 % (38.0-50.0); IMMATURE GRANULOCYTE (%) 0.2 % (0.0-0.7); LYMPHOCYTE COUNT 0.9 K/uL (1.0-2.8); MCH 32.6 PG (29.0-34.0); MCHC 32.4 G/DL (30.0-36.0); MCV 100.4 FL (86-99); MONOCYTE (%) 8.2 % (3-12); MONOCYTE COUNT 0.5 K/uL (0-0.8); NEUTROPHIL (%) 74.9 % (45-76); NEUTROPHIL COUNT 4.7 K/uL (1.8-6.4); RBC DIS.WIDTH-CV 21.6 % (11.8-14.6); RBC DIS.WIDTH-SD 78.2 % (39-53); RED BLOOD COUNT 2.61 M/uL (4.00-5.50)
[2016-10-07 09:28] LABS: WHITE BLOOD COUNT 6.3 K/uL (4.1-10.2)
[2016-10-07 10:14] LABS: PLATELET COUNT UNABLE TO REPORT K/uL (156-360); USER ID TLW
[2016-10-07 12:58] LABS: POINT-OF-CARE METER ID UU14149397
[2016-10-07 16:06] VITALS: BP 142/82
[2016-10-07 17:16] LABS: POINT-OF-CARE METER ID UU14188577
[2016-10-07 23:54] VITALS: BP 151/84
[2016-10-08 07:27] VITALS: BP 124/76
[2016-10-08 07:34] LABS: POINT-OF-CARE METER ID UU14188577
[2016-10-08 12:08] VITALS: BP 126/74
[2016-10-08 12:14] LABS: POINT-OF-CARE METER ID UU14188577
[2016-10-08 12:32] LABS: POINT-OF-CARE METER ID UU14188577
[2016-10-08 15:51] VITALS: BP 140/83
[2016-10-08 16:43] LABS: POINT-OF-CARE METER ID UU14188577
[2016-10-08 21:34] LABS: POINT-OF-CARE METER ID UU14188577
[2016-10-08 23:23] VITALS: BP 135/81
[2016-10-08 23:41] VITALS: BP 118/66
[2016-10-09 06:32] LABS: POINT-OF-CARE METER ID UU14149397
[2016-10-09 07:03] LABS: HEMATOCRIT 28.6 % (38.0-50.0); MCH 32.7 PG (29.0-34.0); MCHC 31.8 G/DL (30.0-36.0); MCV 102.9 FL (86-99); RBC DIS.WIDTH-CV 21.1 % (11.8-14.6); RBC DIS.WIDTH-SD 79.4 % (39-53); RED BLOOD COUNT 2.78 M/uL (4.00-5.50); WHITE BLOOD COUNT 5.7 K/uL (4.1-10.2)
[2016-10-09 07:30] LABS: ANION GAP 7 MEQ/L (2-14); CHLORIDE 97 MEQ/L (99-109); GFR ESTIMATE (CALCULATED) 16 mL/min/; SAMPLE HEMOLYSIS CHECK 1; SAMPLE ICTERIC CHECK 0; SAMPLE LIPEMIA CHECK 0; SODIUM 137 MEQ/L (136-147); UREA NITROGEN (BUN) 28 mg/dL (9-23)
[2016-10-09 07:32] LABS: GLUCOSE 84 mg/dL (70-99); MEAN PLAT.VOLUME 10.7 uM^3 (9.0-12.4); PLATELET COUNT 224 K/uL (156-360); POTASSIUM 4.5 MEQ/L (3.7-5.4)
[2016-10-09 07:46] LABS: ABS NEUTROPHIL COUNT 4.36; ANISOCYTOSIS 1+; EOSINOPHIL ABS CT 0.17; MACROCYTES 2+; PLAT.SUFFICIENCY ADEQUATE; POLYCHROMASIA OCC; USER ID STC
[2016-10-09 11:07] LABS: IMMUNOGLOBULIN A 113 MG/DL (40-350); IMMUNOGLOBULIN G 1664 MG/DL (650-1600); IMMUNOGLOBULIN M 28 MG/DL (50-300)
[2016-10-09 11:12] LABS: GLOBULINS 3.5 G/DL (2.3-3.5)
[2016-10-09 14:34] LABS: DELETE MACHINE DIFF? YES
[2016-10-09 15:29] VITALS: BP 118/65
[2016-10-09] MEDS ORDERED: DUONEB 2.5-0.5 M3 ML AEROSOL (16:56)
[2016-10-09] MEDS ORDERED: MIDODRINE HCL5 MG PO (16:57)
[2016-10-09] MEDS ORDERED: VENOFER100 MG/5 M IV (16:57)
[2016-10-09] MEDS ORDERED: TYLENOL REGULA325 MG PO (16:58)
[2016-10-09] MEDS ORDERED: Chronulac,Cephulac,E PO (16:59)
[2016-10-09] MEDS ORDERED: Magic Mouthwash Garg MM (16:59)
[2016-10-09] MEDS ORDERED: MAG-AL PLUS SUS30 ML PO (17:00)
[2016-10-09] MEDS ORDERED: BISAC-EVAC10 MG PR (17:00)
[2016-10-09] MEDS ORDERED: POLYETHYLENE GL17 GM PO (17:00)
[2016-10-09] MEDS ORDERED: FLORASTOR250 MG PO (17:01)
[2016-10-09] MEDS ORDERED: EMLA TP (17:02)
[2016-10-09] MEDS ORDERED: Zeasorb Antifungal T TP (17:02)
[2016-10-09] MEDS ORDERED: NOVOLOG PE100 UNITS/ SC (17:02)
[2016-10-09] MEDS ORDERED: GLUCAGEN1 MG IM/SC (17:02)
[2016-10-09] MEDS ORDERED: ZINC OXIDE56.7 GM TP (17:02)
[2016-10-09] MEDS ORDERED: CALCITRIOL0.25 MCG PO (17:03)
[2016-10-10 00:35] VITALS: BP 141/85
[2016-10-10 04:13] VITALS: BP 133/74
[2016-10-10 06:57] LABS: POINT-OF-CARE METER ID UU14188577
[2016-10-10 07:54] VITALS: BP 121/75
[2016-10-10] MEDS ORDERED: VOLTAREN 1% GE100 GM TP (13:01)
[2016-10-10] MEDS ORDERED: Chronulac,Cephulac,E PO (13:01)
[2016-10-10] MEDS ORDERED: POLYETHYLENE GL17 GM PO (13:01)
[2016-10-10 14:35] LABS: ALBUMIN 2.51 G/DL (3.6-4.9); ALBUMIN PERCENT 43.3 %; ALPHA-1 GLOBULIN 0.34 G/DL (0.15-0.40); ALPHA-1 PERCENT 5.9 %; ALPHA-2 PERCENT 15.6 %; GAMMA PERCENT 25.2 %
[2016-10-11 14:18] LABS: IFE GEL NO. 22-9
== END 2016-10-10 15:12 | DRG 981 ==
LOC: EME → EDBD 21:14 → EME 21:14 → 3EAST 08-12 02:07 → 5EAST 08-12 02:07 → EDOF 08-12 02:07 → 5EAST 08-12 03:21 → 4WEST 09-08 13:02 → 4EAST 09-11 21:06 → 4WEST 09-13 18:19 → 4EAST 09-16 02:58 → 3EAST 09-19 17:59
PROVIDERS: Anesthesiology; Emergency Medicine; Family Medicine; Family Medicine Sports Medicine; Internal Medicine; Internal Medicine Nephrology; Internal Medicine Pulmonary Disease; Orthopaedic Surgery
PROC: 30233N1 Transfusion of Nonautologous Red Blood Cells into Peripheral Vein, Percutaneous Approach (ICD-10-PCS; principal; 2016-08-12)
PROC: 5A1D60Z (ICD-10-PCS; 2016-08-12)
PROC: 05HN33Z Insertion of Infusion Device into Left Internal Jugular Vein, Percutaneous Approach (ICD-10-PCS; 2016-09-13)
PROC: 0QS904Z Reposition Left Femoral Shaft with Internal Fixation Device, Open Approach (ICD-10-PCS; 2016-09-13)
PROC: 0QSB04Z Reposition Right Lower Femur with Internal Fixation Device, Open Approach (ICD-10-PCS; 2016-09-13)
DX: J18.9 Pneumonia, unspecified organism (principal); N18.6 End stage renal disease; C90.00 Multiple myeloma not having achieved remission; E87.1 Hypo-osmolality and hyponatremia; Z68.41 Body mass index [BMI] 40.0-44.9, adult; F05 Delirium due to known physiological condition; M84.451A Pathological fracture, right femur, initial encounter for fracture; M84.452A Pathological fracture, left femur, initial encounter for fracture; F33.9 Major depressive disorder, recurrent, unspecified; I12.0 Hypertensive chronic kidney disease with stage 5 chronic kidney disease or end stage renal disease; E83.52 Hypercalcemia; D69.6 Thrombocytopenia, unspecified; E66.01 Morbid (severe) obesity due to excess calories; E11.22 Type 2 diabetes mellitus with diabetic chronic kidney disease; D63.1 Anemia in chronic kidney disease; E83.51 Hypocalcemia; G47.33 Obstructive sleep apnea (adult) (pediatric); E78.5 Hyperlipidemia, unspecified; K59.00 Constipation, unspecified; D47.2 Monoclonal gammopathy; K21.9 Gastro-esophageal reflux disease without esophagitis; M19.90 Unspecified osteoarthritis, unspecified site; Q63.1 Lobulated, fused and horseshoe kidney; Z91.19 Patient's noncompliance with other medical treatment and regimen; Z79.4 Long term (current) use of insulin; Z99.2 Dependence on renal dialysis
CPT/HCPCS: 31720; 70450; 71010; 71020; 71250; 73522; 73552; 74176; 76000; 76705; 80048; 80048 91; 80053; 80069; 80202; 81003; 82140; 82232; 82306; 82330; 82565; 82607; 82746; 82784 90; 82948; 83540; 83605; 83615; 83690; 83735; 83883 90; 83970; 84100; 84145 90; 84165; 84466; 84484; 85014; 85018; 85025; 85025 91; 85027; 85049; 85378; 85384; 85610; 85730; 86334; 86706; 86850; 86900; 86901; 86920; 87040; 87070; 87081; 87102; 87116; 87205; 87206; 87278; 87340; 87493; 87502; 87641; 88108; 88305; 88312; 93005; 93306; 94010; 94640; 94640 76; 94667; 94668; 94760; 94799; 97530 GO; 97530 GP; 99202; 99281; 99285; C1713; J0131; J0456; J0636; J0692; J0881; J1100; J1170; J1200; J1644; J1756; J1815; J2250; J2310; J2405; J2543; J2710; J3010; J3370; J3430; J7030; J7040; J7050; J8540; J9041; P9016; P9017; P9035; P9040; P9045; P9047